=== PATIENT | male | born 1950 | race Caucasian/White ===

== ENCOUNTER 2020-02-13 09:24 | Outpatient (REF) | payer MEDICARE, SELFPAY ==
[2020-02-13 10:26] LABS: Hemoglobin 14.8 g/dl (14.0-18.0); Mean Corpuscular HGB Conc 33.6 g/dl (31.0-36.0); Mean Corpuscular Hemoglobin 31.6 pg (27.0-33.0); Mean Platelet Volume 9.5 fL (9.4-12.4); Platelet Count 306 X10*3/uL (160-400); Red Blood Count 4.68 X10*6/uL (4.60-5.80); Red Cell Distribution Width 12.1 % (11.0-16.0); White Blood Count 7.4 X10*3/uL (4.8-10.8)
[2020-02-13 10:51] LABS: Alanine Aminotransferase 23 U/L (0-40); Albumin Level 4.6 g/dL (3.5-5.0); Alkaline Phosphatase 75 U/L (39-117); Anion Gap 13 (12-20); Aspartate Amino Transferase 25 U/L (5-37); Bilirubin Direct 0.3 mg/dL (0.0-0.5); Bilirubin Total 0.6 mg/dL (0.0-1.0); Blood Urea Nitrogen 9 mg/dL (9-16); Calcium 9.3 mg/dL (8.4-10.2); Carbon Dioxide 30 mmol/L (22-29); Chloride 98 mmol/L (96-108); Cholesterol 187 mg/dL; Estimated Glomerular Filt Rate > 60; Glucose Random 118 mg/dL (60-115); HDL Cholesterol 77 mg/dL; LDL Cholesterol Calculated 97 mg/dl; Potassium 3.9 mmol/l (3.3-5.1); Sodium 137 mmol/L (135-145); Total Protein 7.2 g/dL (6.5-8.0); Triglycerides 65 mg/dL
== END 2020-02-13 09:25 | disposition home or self-care (01) ==
LOC: HO.10HDL 09:24
PROVIDERS: Visit Provider Internal Medicine
DX: I10 Essential (primary) hypertension (principal); J44.9 Chronic obstructive pulmonary disease, unspecified; K21.9 Gastro-esophageal reflux disease without esophagitis
CPT/HCPCS: 36415; 80048; 80061; 80076; 85027

== ENCOUNTER → 2020-05-28 13:21 | Outpatient (BNVA) | payer MEDICARE, SELFPAY | PROVIDERS: PCP Internal Medicine; Visit Provider Internal Medicine Pulmonary Disease | DX: J44.9 Chronic obstructive pulmonary disease, unspecified (principal); Z91.09 Other allergy status, other than to drugs and biological substances; K21.9 Gastro-esophageal reflux disease without esophagitis | CPT/HCPCS: 99212 ==

== ENCOUNTER 2020-07-03 13:49 | Outpatient (REF) | payer MEDICARE, SELFPAY | END 2020-07-03 13:50 | disposition home or self-care (01) | LOC: HO.LNP 13:49 | PROVIDERS: Visit Provider Hospitalist | DX: R51.9 Headache, unspecified (principal); Z20.822 Contact with and (suspected) exposure to COVID-19 | CPT/HCPCS: U0003; U0005 ==

== ENCOUNTER → 2020-09-06 08:58 | Outpatient (BNVA) | payer MEDICARE, SELFPAY | PROVIDERS: PCP Internal Medicine; Visit Provider Internal Medicine Pulmonary Disease | DX: J44.9 Chronic obstructive pulmonary disease, unspecified (principal); Z91.09 Other allergy status, other than to drugs and biological substances; Z79.899 Other long term (current) drug therapy | CPT/HCPCS: 99212 ==

== ENCOUNTER 2020-10-17 09:30 | Outpatient (REF) | payer MEDICARE, SELFPAY ==
[2020-10-17 10:37] LABS: Glucose Urine UA NEG (NEG); Leukocyte Esterase Urine NEG (NEG); Nitrite Urine NEG (NEG); PH 7.5 (5.0-8.0); Urine Blood NEG (NEG); Urine Ketones NEG (NEG); Urine Protein NEG (NEG-TRACE)
[2020-10-17 10:39] LABS: Appearance Urine CLEAR; Color Urine YELLOW
[2020-10-17 10:40] LABS: Hematocrit 40.3 % (42-52); Hemoglobin 14.1 g/dl (14.0-18.0); Mean Corpuscular Hemoglobin 31.3 pg (27.0-33.0); Mean Corpuscular Volume 89.6 fL (80-98); Mean Platelet Volume 9.5 fL (9.4-12.4); Platelet Count 289 X10*3/uL (160-400); Red Cell Distribution Width 12.3 % (11.0-16.0); White Blood Count 6.9 X10*3/uL (4.8-10.8)
[2020-10-17 10:58] LABS: Alanine Aminotransferase 22 U/L (0-40); Albumin Level 4.5 g/dL (3.5-5.0); Alkaline Phosphatase 72 U/L (39-117); Anion Gap 14 (12-20); Aspartate Amino Transferase 24 U/L (5-37); Bilirubin Direct 0.3 mg/dL (0.0-0.5); Bilirubin Total 0.5 mg/dL (0.0-1.0); Blood Urea Nitrogen 9 mg/dL (9-16); Calcium 9.3 mg/dL (8.4-10.2); Carbon Dioxide 25 mmol/L (22-29); Chloride 97 mmol/L (96-108); Cholesterol 183 mg/dL; Estimated Glomerular Filt Rate > 60; Glucose Random 107 mg/dL (60-115); HDL Cholesterol 74 mg/dL; LDL Cholesterol Calculated 88 mg/dl; Potassium 3.7 mmol/L (3.3-5.1); Sodium 132 mmol/L (135-145); Total Protein 7.1 g/dL (6.5-8.0); Triglycerides 105 mg/dL
[2020-10-17 11:22] LABS: Thyroid Stimulating Hormone 1.77 uIU/mL (0.32-4.0)
[2020-10-17 12:03] LABS: Erythrocyte Sedimentation Rate 5 MM/HR (0-15)
== END 2020-10-17 09:31 | disposition home or self-care (01) ==
LOC: HO.10HDL 09:30
PROVIDERS: Visit Provider Internal Medicine
DX: I10 Essential (primary) hypertension (principal)
CPT/HCPCS: 36415; 80048; 80061; 80076; 81003; 84443; 85027; 85652

== ENCOUNTER → 2020-12-20 07:55 | Outpatient (BNVA) | payer MEDICARE, SELFPAY | PROVIDERS: PCP Internal Medicine; Visit Provider Physician Assistant | DX: Z12.11 Encounter for screening for malignant neoplasm of colon (principal); K21.9 Gastro-esophageal reflux disease without esophagitis | CPT/HCPCS: 99202 ==

== ENCOUNTER → 2021-01-30 10:36 | Outpatient (BNVA) | payer MEDICARE, SELFPAY | PROVIDERS: PCP Internal Medicine; Visit Provider Internal Medicine Pulmonary Disease | DX: Z01.811 Encounter for preprocedural respiratory examination (principal); J44.9 Chronic obstructive pulmonary disease, unspecified; Z91.09 Other allergy status, other than to drugs and biological substances | CPT/HCPCS: 99212 ==

== ENCOUNTER 2021-02-01 11:28 | Emergency (ER) | payer MEDICARE, SELFPAY ==
--- NOTE | 2021-01-30 14:47 | HO.ANESPROP2 ---
HPI - Anesthesia Eval Consult details Narrative: 02/01/21 - New onset afib preop. Endos cx'd. Pt tx'd to ED. 70yo M for ?Upper Endoscopy and Colonoscopy Pulmo cleared @ low risk. Rec's preop neb. +ETOH PMFSH Active Problems Active Problems: All Active Problems (Updated 01/30/21 @ 10:55 by Tomas Mauricio MD) Encounter for preoperative pulmonary examination (Acute) Asthma-COPD overlap syndrome (Acute) Environmental allergies (Acute) Headache (Acute) Nonspecific syndrome suggestive of viral illness (Acute) Screening for colon cancer (Acute) Urinary anomaly (Acute) Post-traumatic osteoarthritis, unspecified hand (Acute) Chronic obstructive pulmonary disease, unspecified (Acute) GERD (gastroesophageal reflux disease) (Acute) Alcohol abuse, uncomplicated (Acute) Borderline hypercholesterolemia (Acute) Benign essential HTN (Acute) Past Medical History Medical History Alcohol abuse, uncomplicated Benign essential HTN Borderline hypercholesterolemia Chronic obstructive pulmonary disease, unspecified Environmental allergies GERD (gastroesophageal reflux disease) Post-traumatic osteoarthritis, unspecified hand Family History Family History Father No problems noted. Mother No problems noted. Sister Pancreatic cancer Surgical History Surgical History History of cataract surgery History of removal of cyst Hx of colonoscopy Social History Social History Housing: House Alcohol intake: current Alcohol intake frequency: 0-2 drinks per day Alcohol type: hard liquor Patient Tobacco Use Status: Former Tobacco user Substance Use Type: Marijuana service: No Current occupational status: retired Meds Allergies Allergy/AdvReac Type Severity Reaction Status Date / Time No Known Allergies Allergy Verified 01/30/21 10:41 [No Known Allergies*] Exam Exam Date and Time: January 30, 2021 9697 Assessment and Plan Assessment Anesthesia Assessment: Chart Reviewed
--- NOTE | ~2021-02-01 | XR_ITS ---
EXAMINATION: XR CHEST CLINICAL INFORMATION: Low suspicion for pulmonary edema COMPARISON: None TECHNIQUE: Frontal view of the chest was obtained. FINDINGS: No significant abnormality is noted involving the heart, lungs, mediastinum, bony thorax or soft tissues. XR/XR chest 1V IMPRESSION: Unremarkable chest examination.
[2021-02-01 10:13] VITALS: BMI 25.7
[2021-02-01 10:17] VITALS: BP 156/78; PULSE 97; RESP 18; TEMP 36.6; O2SAT 95
[2021-02-01] MEDS: Albuterol Sulfate (0.083%) 2.5 MG/3 ML VIAL.NEB INHALE (10:33)
[2021-02-01 10:34] VITALS: PULSE 114
--- NOTE | 2021-02-01 10:35 | PC.NURSE ---
pt recieving resp tx
--- NOTE | 2021-02-01 10:38 | ECG_ITS ---
Test Reason : pvc, ? changes Blood Pressure : / mmHG Vent. Rate : 104 BPM Atrial Rate : 000 BPM P-R Int : 000 ms QRS Dur : 098 ms QT Int : 364 ms P-R-T Axes : 000 044 060 degrees QTc Int : 478 ms Atrial fibrillation with rapid ventricular response Nonspecific ST abnormality Abnormal ECG When compared with ECG of 19-NOV-2018 08:35, Atrial fibrillation has replaced Sinus rhythm Referred By: Mayo Sethi Electronically Signed By:CYNDEE CHEEK MD
--- NOTE | 2021-02-01 10:45 | MHC.SHP ---
Pre-Procedural Eval Section A Date of Service: 02/01/21 The patient is an INPATIENT: No The History & Physical has been completed within 30 days and I have reviewed it.: No Section B Chief Complaint: Colon cancer screening, reflux disease Details of Present Illness: Colon cancer screening, GERD Relevant Family History (Specify if Yes): Yes Relevant Social History: None Present Medications: see Short Stay Collaborative assessment Medical History: Significant History (Alcohol abuse, uncomplicated Benign essential HTN Borderline hypercholesterolemia Chronic obstructive pulmonary disease, unspecified GERD (gastroesophageal reflux disease) Post-traumatic osteoarthritis, unspecified hand) History of Previous Operations: Relevant previous surgery/procedure and date(s) (History of cataract surgery History of removal of cyst Hx of colonoscopy) Allergies: Allergies Allergy/AdvReac Type Severity Reaction Status Date / Time No Known Allergies Allergy Verified 01/30/21 10:41 [No Known Allergies*] Plan Diagnosis/Plan: Change (Pt evaluated by anesthesia on arrival and noted to be in AF with rapid ventricular response.) Procedure was cancelled and patient transferred to the ER for further management.
[2021-02-01] MEDS: Lactated Ringers 1,000 ML 100 ML IVCONT (10:47)
--- NOTE | 2021-02-01 10:48 | PM.OP ---
Brief Operative Note Date of Service: 02/01/21 Pre-op diagnosis: Colon cancer screening, GERD Procedure: FLEXIBLE TRANSORAL UPPER GASTROINTESTINAL ENDOSCOPY AND COLONOSCOPY PROCEDURE NOTE UPPER ENDOSCOPY Consent: Indications for the procedure and potential complications of bleeding, perforation, reaction to medications and missed diagnosis were discussed with the patient and informed consent was obtained. Instrument: Olympus GIF H 190 mid size upper endoscope Monitoring: Vital signs and clinical assessment, continuous EKG monitoring, Pulse oximetry, Carbon Dioxide monitoring and blood pressure monitoring were done throughout the procedure. Procedure: The patient was placed in the left lateral decubitis position and pre-procedure medications were administered and a bite block was placed. The endoscope was inserted into the mouth and advanced under direct vision to the third part of duodenum. A careful inspection was made as the upper endoscope was withdrawn including a retroflexed examination of the proximal stomach; Findings and interventions are described below. Findings: Larynx: Esophagus: GE junction at []. No esophagitis or Arita's. Stomach: Mild gastric erythema. Biopsies were obtained. Grade 2 flap valve on retroflexed examination of the cardia. Duodenum: Normal bulb and descending duodenum Intervention: Biopsies as noted above COLONOSCOPY PROCEDURE NOTE Consent: Indications for the procedure and potential complications of bleeding, perforation, reaction to medications and missed diagnosis were discussed with the patient and informed consent was obtained. Instrument: Olympus PCF H 190 L variable stiffness pediatric colonoscope Monitoring: Vital signs and clinical assessment, intermittent blood pressure monitoring, continuous EKG monitoring, Pulse oximetry and Carbon Dioxide monitoring were done throughout the procedure. Colon withdrawl time was [] minutes. Procedure: The patient was placed in the left lateral decubitis position and pre-procedure medications were administered. After a digital rectal examination of the ano-rectum, the video colonoscope was inserted into the rectum and advanced through the colon to the cecum. The colonoscope was slowly withdrawn in a retrograde panoramic fashion and the colon mucosa was carefully examined including a retroflexed view of the rectum. Findings and interventions are described below. Procedure Difficulty: : [Without difficulty] [LLQ pressure applied to intubate the transverse colon/cecum] Findings: Terminal Ileum: Not evaluated Cecum: Normal Ascending Colon: Normal Transverse Colon: Normal Descending Colon: Normal Sigmoid Colon: Moderate diverticulosis Rectum: Normal Ano-rectum: Moderate internal hemorrhoids Colon preparation: [Excellent] [Good] [Fair] [poor] Impression and Post Procedure Diagnosis: Endoscopy Findings: LARYNX: [] ESOPHAGUS: [] STOMACH: [] DUODENUM: [] Colonoscopy Findings: [] polyps removed Moderate diverticulosis seen in the []colon Moderate hemorrhoids on retroflexed exam. Plan: Await pathology results Patient has an appointment on 03/18/21 in the [facility] with PHIL Lopez. Repeat Colonoscopy interval based on path results - in 3-5 years if polyps are adenomatous and 10 years if polyps are hyperplastic. Above findings were reviewed with the patient and [colon polyps] and [diverticulosis] handouts were given in the discharge area Surgeon: Yara Teran MD Was an [employer] used for this Procedure?: No
--- NOTE | 2021-02-01 10:48 | W.PM.OPN ---
Operative Note Operative Note Date of Service: 02/01/21
--- NOTE | 2021-02-01 10:57 | PC.NURSE ---
anesthesia at bedside pt in afib denies c/p denies sob
--- NOTE | 2021-02-01 10:59 | PC.NURSE ---
pt aware of plan of care pwd report to ed from anesthesia denies pain awaiting transfer to ed
[2021-02-01 11:06] VITALS: BP 102/66; PULSE 96; RESP 17; TEMP 36.6; O2SAT 94
--- NOTE | 2021-02-01 11:08 | PC.NURSE ---
pt denies sob pwd aware of plan of care
--- NOTE | 2021-02-01 11:14 | PC.NURSE ---
pt being transferred to ed report to mallory farris pt aware of plan of care
[2021-02-01 11:30] VITALS: BP 124/66; PULSE 93; RESP 17; TEMP 37; O2SAT 95; BMI 25.0
--- NOTE | 2021-02-01 11:38 | ECG_ITS ---
Test Reason : AFIB Blood Pressure : / mmHG Vent. Rate : 083 BPM Atrial Rate : 000 BPM P-R Int : 000 ms QRS Dur : 096 ms QT Int : 390 ms P-R-T Axes : 000 045 043 degrees QTc Int : 458 ms Atrial fibrillation Abnormal ECG No significant changes seen Referred By: Agnes Ramires Electronically Signed By:CYNDEE CHEEK MD
--- NOTE | 2021-02-01 11:42 | ED.ARRPALP ---
HPI - Arrhythmia/Palpitations General Chief Complaint: Arrhythmia/Palpitations Time Seen by Provider: 02/01/21 11:36 Source: patient Mode of arrival: wheelchair Limitations: no limitations History of Present Illness HPI narrative: Patient is coming to the emergency room by wheelchair from short surgery stay. Patient was scheduled to get an upper endoscopy and colonoscopy today. On his EKG this morning he had atrial fibrillation. On the monitor his heart rate ranged between 100 and 120. Patient has no history of atrial fibrillation, he is asymptomatic, denies chest pain, shortness of breath or palpitations. Patient is known to drink alcohol every day, last drink yesterday morning. Related Data Previous Rx's Medication Instructions Recorded fluticasone propionate 220 2 puff PO BID #36 g 02/07/ mcg/actuation HFA aerosol inhaler (Flovent HFA) lisinopril 20 1 tab PO DAILY #30 tab 07/12/20 mg-hydrochlorothiazide 25 mg tablet amlodipine 10 mg tablet 10 mg PO DAILY #90 tab 08/09/20 simvastatin 40 mg tablet 40 mg PO QPM #90 tab 09/05/20 fluticasone propionate 50 1 spray INTRANASAL DAILY #16 ml 09/06/20 mcg/actuation nasal spray,suspension omeprazole 20 mg capsule,delayed 20 mg PO DAILY #90 cap 09/09/20 release meloxicam 15 mg tablet 15 mg PO DAILY #30 tab 10/15/20 umeclidinium 62.5 mcg-vilanterol 1 ea PO DAILY #60 cap 11/26/20 25 mcg/actuation powdr for inhalation (Anoro Ellipta) bisacodyl 5 mg tablet,delayed 10 mg PO ONCE 1 Days #2 tab 12/20/20 release (Dulcolax (bisacodyl)) polyethylene glycol 3350 17 238 g PO ONCE 1 Days #238 g 12/20/20 gram/dose oral powder (Miralax) albuterol sulfate 90 mcg/actuation 2 puff PO Q4-6H PRN #8.5 ea 12/28/20 aerosol inhaler Allergies Allergy/AdvReac Type Severity Reaction Status Date / Time No Known Allergies Allergy Verified 01/30/21 10:41 [No Known Allergies*] Review of Systems Review of Systems: Constitutional : No Weight loss, No Fever, No Chills, No Night Sweats, No Fatigue, No Malaise ENT/Mouth : No Hearing loss, No Ear Pain, No Nasal Congestion, No Sinus Pain, No Hoarseness, No sore throat, No Rhinorrhea, No Swallowing Difficulty Eyes: No Eye Pain, No Swelling, No Redness, No Foreign Body, No Discharge, No Vision Changes Cardiovascular : No Chest Pain, No SOB, No Dyspnea on Exertion, No Orthopnea, No Edema, No Palpitations Respiratory : No Cough, No Sputum, No Wheezing, No Smoke Exposure, No Dyspnea Gastrointestinal : No Nausea, No Vomiting, No Diarrhea, No Constipation, No abdominal Pain, No Hematochezia, No Melena Genitourinary : no irregular bleeding, No Dysuria, No Urinary Frequency, No Hematuria, No Urinary Incontinence, No Urgency, No Flank Pain, No Urinary Flow Changes, No Hesitancy Musculoskeletal : No joint pain, No Myalgias, No Joint Swelling Skin : No Skin Lesions, No rash Neuro : No Weakness, No Numbness, No Paresthesias, No Loss of Consciousness, No Dizziness, No Headache Psych : No Anxiety/Panic, No Depression, No SI/HI/AH/VH, No Social Issues, Heme/Lymph: No Bruising, No Bleeding,No Lymphadenopathy Endocrine : No Polyuria, No Polydipsia, No Temperature Intolerance [facility] Past Medical History Medical History Alcohol abuse, uncomplicated Benign essential HTN Borderline hypercholesterolemia Chronic obstructive pulmonary disease, unspecified Environmental allergies GERD (gastroesophageal reflux disease) Post-traumatic osteoarthritis, unspecified hand Surgical History History of cataract surgery History of removal of cyst Hx of colonoscopy Family History Family History Father No problems noted. Mother No problems noted. Sister Pancreatic cancer Social History Social History Housing: House Alcohol intake: current Alcohol intake frequency: 0-2 drinks per day Alcohol type: hard liquor Patient Tobacco Use Status: Former Tobacco user Use of substances other than those prescribed or required for medical reasons: No Substance Use Type: Marijuana Have you been hit, kicked, punched, or otherwise hurt by someone within the past year? If so, by whom?: No Are you DNR?: No Advance Directives: No Advance Directives Information Provided: Yes Recently lost weight without trying: No Nutrition Risks: No Nutritional Risk Poor oral hygiene: No service: No Current occupational status: retired Physical Exam Vital Signs: Vital Signs: Last Vital Signs Temp 98.6 F 02/01/21 11:30 Pulse 93 02/01/21 11:30 Resp 17 02/01/21 11:30 BP 124/66 02/01/21 11:30 Pulse Ox 95 02/01/21 11:30 Body Mass Index 25.0 Const: Other: Appearance: Alert. Oriented X3. No acute distress. Eyes: Pupils equal, round and reactive to light. ENT: Pharynx normal. Neck: Normal inspection. Neck supple. No lymph nodes noted. No crepitus CVS: Irregularly irregular, rate control, heart rate 86. Pulses normal. Normal S1 and S2 Respiratory: No respiratory distress. Breath sounds normal. No Wheezing. No rales Abdomen: Soft and nontender. No rigidity. No distention. good BS x4 Skin: Skin warm and dry. Normal skin color. Normal skin turgor. Extremities: No lower extremity edema. No Lacerations. No Rash Neuro: Oriented X 3. No motor deficit. No sensory deficit. Moving all extermities. No slurred speech. Course Course Course Narrative: I discussed the patient with Dr. Miles, recommends to start Xarelto 20 mg daily. I initially spoke to the patient, states that he is willing to go on anticoagulation, but patient changed his mind, states he wants to talk to his primary care physician. Patient will be given a referral to Cardiology as well. I discussed thoroughly with the patient that he is at risk of a stroke. Patient understands the benefits versus risks of anticoagulation. As mentioned above, patient wants to wait. Patient states he can get an appointment tomorrow with his primary care physician MDM - Arrhythmia/Palpitations Lab Data Result diagrams: 02/01/21 11:47 02/01/21 11:47 Labs: Lab Results 02/01/21 02/01/21 02/01/21 Range/Units 11:46 11:46 11:47 WBC 7.3 (4.8-10.8) X10*3/uL RBC 4.51 L (4.60-5.80) X10*6/uL Hgb 14.3 (14.0-18.0) g/dl Hct 39.8 L (42-52) % MCV 88.2 (80-98) fL MCH 31.7 (27.0-33.0) pg MCHC 35.9 (31.0-36.0) g/dl RDW 12.7 (11.0-16.0) % Plt Count 291 (160-400) X10*3/uL MPV 8.9 L (9.4-12.4) fL Immature Gran % (Auto) 0.4 (0.0-0.4) % Neut % (Auto) 73.8 H (45-73) % Lymph % (Auto) 12.5 L (20-40) % Winkler % (Auto) 8.8 (2-11) % Eos % (Auto) 3.7 (0-4) % Baso % (Auto) 0.8 (0-2) % Lymph # (Auto) 0.9 L (1.2-4.9) X10*3/uL Winkler # (Auto) 0.6 (0.1-1.2) X10*3/uL Eos # (Auto) 0.3 (0.0-0.4) X10*3/uL Baso # (Auto) 0.1 (0.0-0.2) X10*3/uL Abs Immat Gran (auto) 0.03 (0.00-0.03) X10*3/uL Absolute Neuts (auto) 5.4 (2.0-8.3) X10*3/uL Absolute Nucleated RBC 0.000 (0.0-0.012) X10*3/uL Nucleated RBC % (auto) 0.0 (0.0-0.2) /100WBC Sodium (135-145) mmol/L Potassium (3.3-5.1) mmol/L Chloride (96-108) mmol/L Carbon Dioxide (22-29) mmol/L Anion Gap (12-20) BUN (9-16) mg/dL Creatinine (0.5-1.4) mg/dL Estim Creat Clear Calc Estimated GFR Random Glucose (60-115) mg/dL Calcium (8.4-10.2) mg/dL Magnesium (1.6-2.6) mg/dL Total Bilirubin (0.0-1.0) mg/dL Direct Bilirubin (0.0-0.5) mg/dL AST (5-37) U/L ALT (0-40) U/L Alkaline Phosphatase (39-117) U/L Troponin I High Sens 6.0 (<3.5-35.0) ng/L B-Natriuretic Peptide 140 H (<100) pg/mL Total Protein (6.5-8.0) g/dL Albumin (3.5-5.0) g/dL Ethyl Alcohol < 10 mg/dL 02/01/21 Range/Units 11:47 WBC (4.8-10.8) X10*3/uL RBC (4.60-5.80) X10*6/uL Hgb (14.0-18.0) g/dl Hct (42-52) % MCV (80-98) fL MCH (27.0-33.0) pg MCHC (31.0-36.0) g/dl RDW (11.0-16.0) % Plt Count (160-400) X10*3/uL MPV (9.4-12.4) fL Immature Gran % (Auto) (0.0-0.4) % Neut % (Auto) (45-73) % Lymph % (Auto) (20-40) % Winkler % (Auto) (2-11) % Eos % (Auto) (0-4) % Baso % (Auto) (0-2) % Lymph # (Auto) (1.2-4.9) X10*3/uL Winkler # (Auto) (0.1-1.2) X10*3/uL Eos # (Auto) (0.0-0.4) X10*3/uL Baso # (Auto) (0.0-0.2) X10*3/uL Abs Immat Gran (auto) (0.00-0.03) X10*3/uL Absolute Neuts (auto) (2.0-8.3) X10*3/uL Absolute Nucleated RBC (0.0-0.012) X10*3/uL Nucleated RBC % (auto) (0.0-0.2) /100WBC Sodium 130 L (135-145) mmol/L Potassium 3.5 (3.3-5.1) mmol/L Chloride 95 L (96-108) mmol/L Carbon Dioxide 24 (22-29) mmol/L Anion Gap 15 (12-20) BUN 7 L (9-16) mg/dL Creatinine 0.82 (0.5-1.4) mg/dL Estim Creat Clear Calc 98.7 Estimated GFR > 60 Random Glucose 114 (60-115) mg/dL Calcium 9.4 (8.4-10.2) mg/dL Magnesium 1.8 (1.6-2.6) mg/dL Total Bilirubin 0.7 (0.0-1.0) mg/dL Direct Bilirubin 0.3 (0.0-0.5) mg/dL AST 26 (5-37) U/L ALT 28 (0-40) U/L Alkaline Phosphatase 77 (39-117) U/L Troponin I High Sens (<3.5-35.0) ng/L B-Natriuretic Peptide (<100) pg/mL Total Protein 6.6 (6.5-8.0) g/dL Albumin 4.2 (3.5-5.0) g/dL Ethyl Alcohol mg/dL ECG Data Attestation: I personally reviewed and interpreted this ECG as follows: (Atrial fibrillation, heart rate 83, a segment depression or elevation, no T-wave inversion, QTC 458) Discharge Plan Discharge Clinical Impression: Atrial fibrillation, new onset Patient Disposition: Home, Self-Care Instructions: A-fib (Atrial Fibrillation) (ED) Additional Instructions: Our shipping assistant recommended that you start anticoagulation, Xarelto 20 mg daily. You decided to wait until you see your primary care physician. Atrial fibrillation puts you at risk of a stroke, which could cause permanent neurological deficits leading to poor quality of life. Please follow-up with your primary care physician tomorrow. If you have any worsening or new symptoms, please return to the emergency room or call 911 Prescriptions: No Action fluticasone propionate [Flovent HFA] 220 mcg/actuation HFA aerosol inhaler 2 puff PO BID Qty: 36 RF: 3 lisinopril-hydrochlorothiazide 20-25 mg tablet 1 tab PO DAILY Qty: 30 RF: 4 amlodipine 10 mg tablet 10 mg PO DAILY Qty: 90 RF: 1 simvastatin 40 mg tablet 40 mg PO QPM Qty: 90 RF: 1 omeprazole 20 mg capsule,delayed release(DR/EC) 20 mg PO DAILY Qty: 90 RF: 1 Anoro Ellipta 62.5-25 mcg/actuation blister with device 1 ea PO DAILY Qty: 60 RF: 3 albuterol sulfate 90 mcg/actuation HFA aerosol inhaler 2 puff PO Q4-6H PRN (Reason: for wheezing) Qty: 8.5 RF: 6 meloxicam 15 mg tablet 15 mg PO DAILY Qty: 30 RF: 0 fluticasone propionate 50 mcg/actuation spray,suspension 1 spray intranasal DAILY Qty: 16 RF: 1 polyethylene glycol 3350 [Miralax] 17 gram/dose powder 238 g PO ONCE 1 Days Qty: 238 RF: 0 bisacodyl [Dulcolax (bisacodyl)] 5 mg tablet,delayed release (DR/EC) 10 mg PO ONCE 1 Days Qty: 2 RF: 0
[2021-02-01 11:54] LABS: MANUAL DIFF FLAG NO
[2021-02-01 11:55] LABS: Basophils Absolute Auto 0.1 X10*3/uL (0.0-0.2); Basophils Percent Auto 0.8 % (0-2); Eosinophils Absolute Auto 0.3 X10*3/uL (0.0-0.4); Eosinophils Percent Auto 3.7 % (0-4); Hematocrit 39.8 % (42-52); Hemoglobin 14.3 g/dl (14.0-18.0); Imm Gran Abs Auto 0.03 X10*3/uL (0.00-0.03); Imm Gran Pct Auto 0.4 % (0.0-0.4); Lymphocytes Absolute Auto 0.9 X10*3/uL (1.2-4.9); Lymphocytes Percent Auto 12.5 % (20-40); Mean Corpuscular HGB Conc 35.9 g/dl (31.0-36.0); Mean Corpuscular Hemoglobin 31.7 pg (27.0-33.0); Mean Corpuscular Volume 88.2 fL (80-98); Mean Platelet Volume 8.9 fL (9.4-12.4); Monocytes Absolute Auto 0.6 X10*3/uL (0.1-1.2); Monocytes Percent Auto 8.8 % (2-11); Neutrophils Absolute Auto 5.4 X10*3/uL (2.0-8.3); Neutrophils Percent Auto 73.8 % (45-73); Platelet Count 291 X10*3/uL (160-400); Red Blood Count 4.51 X10*6/uL (4.60-5.80); Red Cell Distribution Width 12.7 % (11.0-16.0); White Blood Count 7.3 X10*3/uL (4.8-10.8)
[2021-02-01 12:09] LABS: Ethanol < 10 mg/dL
[2021-02-01 12:15] LABS: Alanine Aminotransferase 28 U/L (0-40); Albumin Level 4.2 g/dL (3.5-5.0); Alkaline Phosphatase 77 U/L (39-117); Anion Gap 15 (12-20); Aspartate Amino Transferase 26 U/L (5-37); Bilirubin Direct 0.3 mg/dL (0.0-0.5); Bilirubin Total 0.7 mg/dL (0.0-1.0); Blood Urea Nitrogen 7 mg/dL (9-16); Calcium 9.4 mg/dL (8.4-10.2); Carbon Dioxide 24 mmol/L (22-29); Chloride 95 mmol/L (96-108); Creatinine Clr Calc Pharmacy 98.7; Estimated Glomerular Filt Rate > 60; Glucose Random 114 mg/dL (60-115); Magnesium 1.8 mg/dL (1.6-2.6); Potassium 3.5 mmol/L (3.3-5.1); Sodium 130 mmol/L (135-145); Total Protein 6.6 g/dL (6.5-8.0)
[2021-02-01 12:16] LABS: B Type Natriuretic Peptide 140 pg/mL (<100)
--- NOTE | 2021-02-01 13:39 | PC.NURSE ---
PT EDUCATED ON RISKS OF DECLINING XARELTO UP TO AND INCLUDING . PT REFUSING TO TAKE AT THIS TIME. STATES THAT HE WANTS TO F/U WITH HIS PCP. HE REPORTS I DRINK A NATURAL MUSHROOM TEA THAT THINS MY BLOOD PT AWAKE, ALERT AND ORIENTED X 3. SKIN WARM AND DRY. RESP UNLABORED. DENIES N/V. NO C/O PAIN. DENIES CP/SOB/DIZZINESS. IV REMOVED. PT AWAITING DC PAPERWORK
== END 2021-02-01 13:43 | disposition home or self-care (01) ==
LOC: HO.ED 11:28
PROVIDERS: Emergency Provider Emergency Medicine; PCP Internal Medicine; Visit Provider Internal Medicine Gastroenterology
DX: I48.91 Unspecified atrial fibrillation (principal); I49.9 Cardiac arrhythmia, unspecified; R06.02 Shortness of breath; Z79.899 Other long term (current) drug therapy; Z87.891 Personal history of nicotine dependence
CPT/HCPCS: 36415; 71045; 80048; 80076; 82077; 83735; 83880; 84484; 85025; 93005; 94640; 96360; 99284

== ENCOUNTER → 2021-03-20 14:11 | Outpatient (BNVA) | payer MEDICARE, SELFPAY | PROVIDERS: PCP Internal Medicine; Referring Provider Hospitalist; Visit Provider Internal Medicine Cardiovascular Disease | DX: I48.11 Longstanding persistent atrial fibrillation (principal) | CPT/HCPCS: 93005; 99202 ==

== ENCOUNTER 2021-04-03 12:49 | Day surgery (SDC) | payer MEDICARE, SELFPAY ==
[2021-03-28 13:45] VITALS: BMI 26.4
--- NOTE | 2021-04-02 09:44 | HO.ANESPROP2 ---
Documented by User: Windy Soni NP 04/02/21 09:48 HPI - Anesthesia Eval Consult details Narrative: 71yo M for Cardioversion Eliqius for afib Pulmo cleared for colo and endo @ low risk. Rec's preop neb. +ETOH abuse PMFSH Active Problems Active Problems: All Active Problems (Updated 03/28/21 @ 13:33 by Doretha Wu RN) Asthma-COPD overlap syndrome (Acute) Environmental allergies (Acute) Headache (Acute) Nonspecific syndrome suggestive of viral illness (Acute) Screening for colon cancer (Acute) Urinary anomaly (Acute) Encounter for preoperative pulmonary examination (Acute) Atrial fibrillation (Acute) Post-traumatic osteoarthritis, unspecified hand (Acute) Chronic obstructive pulmonary disease, unspecified (Acute) GERD (gastroesophageal reflux disease) (Acute) Alcohol abuse, uncomplicated (Acute) Borderline hypercholesterolemia (Acute) Benign essential HTN (Acute) Past Medical History Medical History (Updated 03/28/21 @ 13:33 by Doretha Wu RN) Alcohol abuse, uncomplicated Atrial fibrillation Benign essential HTN Borderline hypercholesterolemia Chronic obstructive pulmonary disease, unspecified Environmental allergies GERD (gastroesophageal reflux disease) Post-traumatic osteoarthritis, unspecified hand Family History Family History Father No problems noted. Mother No problems noted. Sister Pancreatic cancer Surgical History Surgical History History of cataract surgery History of removal of cyst Hx of colonoscopy Social History Social History Housing: House Are you a primary career resource specialist to a significant other at home: No Do you presently have visiting nurse or other home services: No Alcohol intake: current Alcohol intake frequency: 0-2 drinks per day Alcohol type: hard liquor Patient Tobacco Use Status: Former Tobacco user Tobacco use type: Cigarette e-Cigarette/Vaping Use: Never Used Second Hand Smoke Exposure: No Use of substances other than those prescribed or required for medical reasons: Yes Substance Use Type: Marijuana Have you been hit, kicked, punched, or otherwise hurt by someone within the past year? If so, by whom?: No Are you DNR?: No Advance Directives: No Advance Directives Information Provided: No Advance Directives on File: No Recently lost weight without trying: No Eating poorly because of decreased appetite: No Nutrition Risks: No Nutritional Risk service: No Current occupational status: retired Cognitive needs: No Hearing needs: No Vision needs: Yes (Reading glasses) Meds Allergies Allergy/AdvReac Type Severity Reaction Status Date / Time No Known Allergies Allergy Verified 03/25/21 09:13 [No Known Allergies*] Home Medications Medication Instructions Recorded Confirmed Last Taken Type aspirin 81 mg tablet,delayed 81 mg PO DAILY 03/25/21 03/28/21 Unknown History release (Adult Low Dose Aspirin) Exam Exam Date and Time: April 02, [id number] Height,Weight and Vital Signs: Height 6 ft 3 in Weight 96.162 kg Narrative Narrative: EKG 03/2021 atrial fibrillation rapid ventricular response at 109 beats per with nonspecific ST T wave changes Assessment and Plan Assessment Anesthesia Assessment: Chart Reviewed Documented by User: Mayo Sethi MD 04/03/21 14:15 [facility] Past Medical History Medical History (Updated 03/28/21 @ 13:33 by Doretha Wu RN) Alcohol abuse, uncomplicated Atrial fibrillation Benign essential HTN Borderline hypercholesterolemia Chronic obstructive pulmonary disease, unspecified Environmental allergies GERD (gastroesophageal reflux disease) Post-traumatic osteoarthritis, unspecified hand Family History Family History Father No problems noted. Mother No problems noted. Sister Pancreatic cancer Family history of problems with anesthesia: No Surgical History Surgical History History of cataract surgery History of removal of cyst Hx of colonoscopy History of Problems with Anesthesia: Yes Social History Social History Housing: House Are you a primary career resource specialist to a significant other at home: No Do you presently have visiting nurse or other home services: No Alcohol intake: current Alcohol intake frequency: 0-2 drinks per day Alcohol type: hard liquor Patient Tobacco Use Status: Former Tobacco user Tobacco use type: Cigarette e-Cigarette/Vaping Use: Never Used Second Hand Smoke Exposure: No Use of substances other than those prescribed or required for medical reasons: Yes Substance Use Type: Marijuana Have you been hit, kicked, punched, or otherwise hurt by someone within the past year? If so, by whom?: No Are you DNR?: No Advance Directives: No Advance Directives Information Provided: No Advance Directives on File: No Recently lost weight without trying: No Eating poorly because of decreased appetite: No Nutrition Risks: No Nutritional Risk service: No Current occupational status: retired Cognitive needs: No Hearing needs: No Vision needs: Yes (Reading glasses) Meds Allergies Allergy/AdvReac Type Severity Reaction Status Date / Time No Known Allergies Allergy Verified 03/25/21 09:13 [No Known Allergies*] Home Medications Medication Instructions Recorded Confirmed Last Taken Type aspirin 81 mg tablet,delayed 81 mg PO DAILY 03/25/21 03/28/21 Unknown History release (Adult Low Dose Aspirin) Exam Airway Mallampati Class: III TM Dist: >3cm Neck ROM: Full Loose/Missing/Broken Teeth: Yes Heart: irreg irreg s1s2 Lungs: cta b/l Assessment and Plan Final Anesthetic Review Family History of Problems with Anesthesia: No History of Problems with Anesthesia: Yes NPO: Yes ASA Class: III Final Preanesthetic Review: No Changes in Pt Med Stat, Meds/Allgs Chart Reviewed, Consent Obtained/Reviewed and Anes Risks/Benef Reviewed Patient Risk: Intermediate Procedure Risk: Intermediate Assessment/Block/Sedation in : Assess/Block/Sedation- Anesthetic Plan Anesthetic Plan: GA, MAC: and Regional Block Disposition: Standard PACU
[2021-04-03 13:22] VITALS: BP 139/84; PULSE 77; RESP 16; TEMP 36.6; O2SAT 98
[2021-04-03] MEDS: Lactated Ringers 1,000 ML 50 ML IVCONT (13:32)
--- NOTE | 2021-04-03 14:27 | MHC.SHP ---
Pre-Procedural Eval Section A Date of Service: 04/03/21 Changes since office visit: Yes Patient answered all questions; No Cold of Flu in the past 2 weeks, No New Medical Problems and No Changes in Medication The History & Physical has been completed within 30 days and I have reviewed it.: Yes Section B Chief Complaint: afib Allergies: Allergies Allergy/AdvReac Type Severity Reaction Status Date / Time No Known Allergies Allergy Verified 03/25/21 09:13 [No Known Allergies*] Plan I have reviewed the history and physical and performed a pertinent physical examination on my patient. No changes have occurred unless specified.
[2021-04-03 14:45] VITALS: BP 151/84; PULSE 73; RESP 20; TEMP 36.6; O2SAT 98
--- NOTE | 2021-04-03 14:48 | HO.CARDIVERS ---
Cardioversion Procedure Note Cardioversion Date of Procedure: 04/03/2021 Ordering Provider: Myself Performing Provider: Myself Indication for Procedure: Persistent new onset atrial fibrillation Pre-Op Diagnosis: Same Post-Op Diagnosis: Same Performed with Transesophageal Echo: No History: See my consult note Consent: Verbal and Written consent was obtained from the patient before starting the procedure after confirming oral anticoagulation use The patient was made aware of the risk of synchronized cardioversion including benefits, alternatives and 2nd opinion. Procedure: After consent obtained, cardioversion pads were attached in anteroposterior configuration and the patient was sedated by the anesthesia team. Once adequate sedation achieved, patient was delivered 200 joules of biphasic synchronized energy x2. Complications: None Impression: Brief conversion to sinus rhythm after the 1st shock, reverted back to atrial fibrillation Recommendations: Plan: 1. Continue full oral anticoagulation and current rate control 2. Follow up in the clinic in 2 weeks time
[2021-04-03 15:00] VITALS: BP 118/72; PULSE 74; RESP 20; O2SAT 96
[2021-04-03 15:15] VITALS: BP 130/81; PULSE 79; RESP 20; O2SAT 95
[2021-04-03 15:30] VITALS: BP 132/74; PULSE 65; RESP 16; TEMP 36.6; O2SAT 95
== END 2021-04-03 15:48 | disposition home or self-care (01) ==
PROVIDERS: PCP Internal Medicine; Visit Provider Internal Medicine Cardiovascular Disease
PROC: 5A2204Z Restoration of Cardiac Rhythm, Single (ICD-10-PCS; principal; 2021-04-03 14:30)
DX: I48.11 Longstanding persistent atrial fibrillation (principal); J44.9 Chronic obstructive pulmonary disease, unspecified; I10 Essential (primary) hypertension; E78.00 Pure hypercholesterolemia, unspecified; F10.10 Alcohol abuse, uncomplicated; F12.90 Cannabis use, unspecified, uncomplicated; Z79.01 Long term (current) use of anticoagulants; Z79.51 Long term (current) use of inhaled steroids; Z79.899 Other long term (current) drug therapy; Z87.891 Personal history of nicotine dependence
CPT/HCPCS: 92960

== ENCOUNTER → 2021-04-22 11:13 | Outpatient (REF) | payer MEDICARE, SELFPAY ==
--- NOTE | 2021-04-22 11:16 | CA_ITS ---
Transthoracic Echocardiogram Patient (Last, First, Middle): Sebastian Knapp, Gender: Male Date of : 1950 Age: 71 Procedure Date: 04/22/2021 Procedure Type: Transthoracic Echocardiogram Location: OP Height: 190.5 cm Weight: 90.72 kg BSA: 2.19 m2 Heart Rate: bpm BP: 170 / 72 mmHg Warehouse And Receiving Supervisor: JUANIS Referring MD: Red Miles MD Steward/Stewardess Third Class: Red Miles MD Symptoms: I48.11 - Longstanding persistent atrial fibrillation Study Quality: Fair ECG Rhythm: Sinus Conclusions: - 1. Normal LV systolic function 2. Moderate left atrial enlargement 3. Mild mitral regurgitation 4. Normal RVSP 5. No pericardial effusion Findings Left Ventricle Normal left ventricular size, thickness, and systolic function. The visually estimated ejection fraction is between 60-65%. Diastolic function is indeterminate on the basis of available data. Right Ventricle Normal right ventricular cavity size and systolic function. Atria The left atrium is moderately dilated. There is no evidence of interatrial shunt. The right atrium is mildly dilated. Aortic Valve There is mild thickening of the aortic valve. There is no aortic valve stenosis. There is no aortic valve regurgitation. Mitral Valve There is mild anterior and posterior mitral leaflet thickening. There is mild mitral valve regurgitation. There is no mitral valve stenosis. Pulmonic Valve The pulmonic valve was not well visualized. Tricuspid Valve Likely normal tricuspid valve structure and function. There is mild tricuspid valve regurgitation. The right ventricular systolic pressure is normal. The right ventricular systolic pressure is 36 mmHg. There is no evidence of pulmonary hypertension. Great Vessels All visible segments of the aorta are normal in size. The pulmonary artery was not well visualized. Venous The inferior vena cava is normal in size and collapses greater than 50% with inspiration. Pericardium/Pleural There is no evidence of pericardial effusion. Prior Study Comparison No prior study available for comparison. Measurements 2D Linear Measurements IVSd: 1.10 0.6-0.9/0.6-1.0 cm LVIDd: 4.52 3.9-5.3/4.2-5.9 cm LVIDd Index: 2.06 2.4-3.2/2.2-3.1 cm/m2 LVIDs: 3.18 2.0-3.6 cm LVPWd: 1.02 0.7-1.1 cm Ao Root: 3.40 2.1-3.5 cm LA Diam: 4.10 2.7-3.8/3.0-4.0 cm LAIDs Index: 1.87 1.5-2.3 cm/m2 LV Mass: 208.43 67-162/88-224 g LV Mass Index: 95.17 43-95/49-115 g/m2 LVOT Diam: 2.20 3.0+(-)1.3 cm 2D Systolic Function EF 4C: 72.80 >55% EF 2C: 50.60 >55% EF BiP: 63.50 >55% Aortic Valve AoV Pk Tho: 1.40 AoV Mn Tho: 0.96 AoV VTI: 0.27 AoV Pk Grad: 8.00 Aov Mn Grad: 4.00 YANELI Cont.VTI: 2.44 LVOT LVOT Pk Tho: 0.87 LVOT Mn Hto: 0.60 LVOT VTI: 0.17 LVOT Pk Grad: 3.00 LVOT Mn Grad: 2.00 LVOT Diam: 2.20 LVOT Area: 3.80 Right Ventricle TAPSE (mm): 2.21 TVS' Tho: 15.80 Tricuspid Valve TR Pk Tho: 2.63 TR Pk Grad: 28.00 RA Press: 8.00 RVSP: 36.00 Great Vessels Aorta Ao Root-2D: 3.40 2.0-3.7 cm Ao Asc: 3.50 2.1-3.4 cm Ao Arch: 3.10 Updated in Other Vendor System with Status of Final Red Miles MD electronically signed on 04/22/2021 6:12:46 PM with status of Final
== END ==
LOC: HO.CARD 11:13
PROVIDERS: Visit Provider Internal Medicine Cardiovascular Disease
DX: I48.11 Longstanding persistent atrial fibrillation (principal)
CPT/HCPCS: 93306

== ENCOUNTER → 2021-05-01 11:13 | Outpatient (BNVA) | payer MEDICARE, SELFPAY | PROVIDERS: PCP Internal Medicine; Referring Provider Hospitalist; Visit Provider Internal Medicine Cardiovascular Disease | DX: I48.11 Longstanding persistent atrial fibrillation (principal); I10 Essential (primary) hypertension; Z79.82 Long term (current) use of aspirin | CPT/HCPCS: 93005; 99212 ==

== ENCOUNTER → 2021-05-09 10:44 | Outpatient (REF) | payer MEDICARE, SELFPAY ==
--- NOTE | 2021-05-09 10:50 | HM_ITS ---
Total monitoring time 3 days and 19 hours. Underlying rhythm is atrial fibrillation. Minimum heart rate 49/Min. Maximum 163/Min. Average 72/Min. Only 1.56% of the time, rate >100/min. No AV blocks or pauses. Frequent PVCs; 2 morphologies and 848 couplets; overall burden 3.7%; 27 runs; longest 3 beats. Cannot exclude aberrant conduction. No patient events. MTDD
== END ==
LOC: HO.CARD 10:44
PROVIDERS: PCP Hospitalist; Visit Provider Internal Medicine Cardiovascular Disease
DX: I48.11 Longstanding persistent atrial fibrillation (principal)
CPT/HCPCS: 93242

== ENCOUNTER → 2021-06-26 12:18 | Outpatient (BNVA) | payer MEDICARE, SELFPAY | PROVIDERS: PCP Hospitalist; Referring Provider Internal Medicine; Visit Provider Physician Assistant | DX: Z12.11 Encounter for screening for malignant neoplasm of colon (principal) | CPT/HCPCS: 99212 ==

== ENCOUNTER → 2021-07-09 08:34 | Outpatient (BNVA) | payer MEDICARE, SELFPAY | PROVIDERS: PCP Hospitalist; Referring Provider Hospitalist; Visit Provider Internal Medicine Cardiovascular Disease | DX: Z01.810 Encounter for preprocedural cardiovascular examination (principal); I48.11 Longstanding persistent atrial fibrillation | CPT/HCPCS: 99212 ==

== ENCOUNTER → 2021-07-25 09:49 | Outpatient (BNVA) | payer MEDICARE, SELFPAY | PROVIDERS: PCP Hospitalist; Visit Provider Internal Medicine Pulmonary Disease | DX: Z01.811 Encounter for preprocedural respiratory examination (principal); J44.9 Chronic obstructive pulmonary disease, unspecified; Z91.09 Other allergy status, other than to drugs and biological substances | CPT/HCPCS: 99212 ==

== ENCOUNTER → 2021-07-31 10:10 | Outpatient (BNVA) | payer MEDICARE, SELFPAY | PROVIDERS: PCP Hospitalist; Visit Provider Physician Assistant | DX: K21.9 Gastro-esophageal reflux disease without esophagitis (principal); I48.91 Unspecified atrial fibrillation; J30.1 Allergic rhinitis due to pollen; Z79.01 Long term (current) use of anticoagulants; I10 Essential (primary) hypertension; F10.10 Alcohol abuse, uncomplicated; Z87.891 Personal history of nicotine dependence; Z79.899 Other long term (current) drug therapy | CPT/HCPCS: Q3014 ==

== ENCOUNTER 2021-09-10 09:19 | Outpatient (REF) | payer MEDICARE, SELFPAY ==
--- NOTE | ~2021-09-10 | CT_ITS ---
EXAMINATION: CT CHEST WITHOUT CONTRAST CLINICAL INFORMATION: Abnormal lung findings. COMPARISON: None TECHNIQUE: Multidetector volumetric CT imaging of the chest was done. Axial MIP volume rendering provided. Sagittal and coronal reformatted images were obtained. This CT examination was performed using dose optimization techniques as appropriate, variously including the following: *Automated exposure control *Adjustment of mA and/or kV according to patient size (this includes techniques or standardized protocols for targeted exams where dose is matched to indication/reason for exam; i.e. extremities or head) *Use of iterative reconstruction technique DLP: 196 mGy-cm FINDINGS: COMMUNITY LIVING COACH: Unremarkable. LUNGS: There is centrilobular emphysema without acute pneumonic process. There is a nodule likely focal bronchial wall thickening axial image 174/5, 5 mm right minor fissure nodule or thickening axial image 292/5, 8mm subpleural nodule right lower lobe axial image 318/5 and 2 mm subpleural nodule left upper lobe axial image 293/5. MEDIASTINUM: The thyroid lobes are symmetrical and normal. The central trachea and the bronchi widely patent. Heart size and the great vessels are normal caliber. There are small shotty lymph nodes in the mediastinum. Central trachea and the bronchi widely patent. There is trace coronary artery calcifications seen. PLEURA: There is no pleural thickening, effusion or pneumothorax. AXILLA: No abnormal lymphadenopathy seen. There is a lateral chest wall intramuscular lipoma measuring 3.9 cm in AP and 6.0 cm craniocaudad length. UPPER ABDOMEN: Visualized liver, spleen, pancreas and bilateral adrenal glands are unremarkable. There is a 3.5 x 3.6 cm partially exophytic cyst midpole right kidney. OSSEOUS STRUCTURES: There is mild ventral spondylosis mid and lower dorsal spine. No lytic or sclerotic process seen CT/CT chest wo con IMPRESSION: Centrilobular emphysema without acute process. Few scattered nodules as described above. Some of these nodules are fissural lymph nodes or subpleural lymph nodes. Mild thickening along the right major fissure likely intrafissural lymph node. Follow-up in one year or more than one year can be performed depending on patient risk factors. Fleischner guidelines were followed.
== END 2021-09-10 09:20 | disposition home or self-care (01) ==
LOC: HO.CT 09:19
PROVIDERS: PCP Hospitalist; Visit Provider Internal Medicine Pulmonary Disease
DX: R91.8 Other nonspecific abnormal finding of lung field (principal)
CPT/HCPCS: 71250

== ENCOUNTER 2021-09-13 08:18 | Outpatient (REF) | payer MEDICARE, SELFPAY ==
[2021-09-14 21:06] LABS: Lyme Abs Screen <0.90 index
== END 2021-09-13 08:19 | disposition home or self-care (01) ==
LOC: HO.WFDLDS 08:18
PROVIDERS: Visit Provider Hospitalist
DX: T14.8XXA Other injury of unspecified body region, initial encounter (principal); W57.XXXA Bitten or stung by nonvenomous insect and other nonvenomous arthropods, initial encounter
CPT/HCPCS: 36415; 86617; 86618

== ENCOUNTER → 2022-01-06 09:34 | Outpatient (BNVA) | payer MEDICARE, SELFPAY | PROVIDERS: PCP Hospitalist; Visit Provider Internal Medicine Pulmonary Disease | DX: J44.9 Chronic obstructive pulmonary disease, unspecified (principal); R91.8 Other nonspecific abnormal finding of lung field; Z91.09 Other allergy status, other than to drugs and biological substances | CPT/HCPCS: 99212 ==

== ENCOUNTER 2022-02-11 08:47 | Outpatient (REF) | payer MEDICARE, SELFPAY ==
[2022-02-11 11:44] LABS: Hematocrit 43.2 % (42.0-52.0); Hemoglobin 15.2 g/dl (14.0-18.0); Mean Corpuscular HGB Conc 35.2 g/dl (31.0-36.0); Mean Corpuscular Hemoglobin 31.4 pg (27.0-33.0); Mean Corpuscular Volume 89.3 fL (80.0-98.0); Mean Platelet Volume 9.9 fL (9.4-12.4); Platelet Count 316 X10*3/uL (160-400); Red Blood Count 4.84 X10*6/uL (4.60-5.80); Red Cell Distribution Width 12.5 % (11.0-16.0); White Blood Count 5.4 X10*3/uL (4.8-10.8)
[2022-02-11 11:50] LABS: Alanine Aminotransferase 19 U/L (0-40); Albumin Level 4.8 g/dL (3.5-5.0); Alkaline Phosphatase 86 U/L (39-117); Anion Gap 15 (12-20); Aspartate Amino Transferase 23 U/L (5-37); Bilirubin Total 0.8 mg/dL (0.0-1.0); Blood Urea Nitrogen 8 mg/dL (9-16); Calcium 9.9 mg/dL (8.4-10.2); Carbon Dioxide 28 mmol/L (22-29); Chloride 93 mmol/L (96-108); Cholesterol 161 mg/dL; Estimated Glomerular Filt Rate > 60; Glucose Fasting 139 mg/dL (60-99); HDL Cholesterol 65 mg/dL; LDL Cholesterol Calculated 82 mg/dl; Potassium 3.8 mmol/L (3.3-5.1); Sodium 132 mmol/L (135-145); Total Protein 7.5 g/dL (6.5-8.0); Triglycerides 72 mg/dL
[2022-02-11 11:59] LABS: TSH reflex Free T4 1.63 uIU/mL (0.32-4.0)
[2022-02-11 12:07] LABS: B Type Natriuretic Peptide 106 pg/mL (<100)
[2022-02-11 12:47] LABS: Folate 15.5 ng/mL (> or = 4.0); Vitamin B12 244 pg/mL (200-900)
[2022-02-16 15:47] LABS: Vitamin D 25-OH, D2 <4 ng/mL; Vitamin D 25-OH, D3 24 ng/mL; Vitamin D 25-OH, Total 24 ng/mL (30-100)
== END 2022-02-11 08:48 | disposition home or self-care (01) ==
LOC: HO.WFDLDS 08:47
PROVIDERS: Visit Provider Hospitalist
DX: Z00.00 Encounter for general adult medical examination without abnormal findings (principal); E55.9 Vitamin D deficiency, unspecified; I48.11 Longstanding persistent atrial fibrillation; D64.9 Anemia, unspecified
CPT/HCPCS: 36415; 80053; 80061; 82306; 82607; 82746; 83880; 84443; 85027

== ENCOUNTER → 2022-02-21 08:47 | Outpatient (BNVA) | payer MEDICARE, SELFPAY | PROVIDERS: PCP Hospitalist; Visit Provider Internal Medicine Pulmonary Disease | DX: Z01.811 Encounter for preprocedural respiratory examination (principal); J44.9 Chronic obstructive pulmonary disease, unspecified; R91.8 Other nonspecific abnormal finding of lung field | CPT/HCPCS: 99212 ==

== ENCOUNTER → 2022-03-19 08:30 | Outpatient (BNVA) | payer MEDICARE, SELFPAY | PROVIDERS: PCP Hospitalist; Referring Provider Hospitalist; Visit Provider Internal Medicine Cardiovascular Disease | DX: I48.11 Longstanding persistent atrial fibrillation (principal); I10 Essential (primary) hypertension | CPT/HCPCS: 99212 ==

== ENCOUNTER 2022-03-24 11:49 | Day surgery (SDC) | payer MEDICARE, SELFPAY ==
[2022-03-18 15:38] VITALS: BMI 25.3
--- NOTE | 2022-03-21 10:26 | HO.ANESPROP2 ---
Documented by User: Windy Soni NP 03/21/22 10:31 HPI - Anesthesia Eval Consult details Narrative: 72yo M for Upper Endoscopy and Colonoscopy Eliquis for afib Optimized per cardio and pulmo PMFSH Active Problems Active Problems: All Active Problems (Updated 03/18/22 @ 15:25 by Manuela Fernandez RN) Asthma-COPD overlap syndrome (Acute) Environmental allergies (Acute) Headache (Acute) Nonspecific syndrome suggestive of viral illness (Acute) Screening for colon cancer (Acute) Urinary anomaly (Acute) Encounter for preoperative pulmonary examination (Acute) Atrial fibrillation (Acute) Pulmonary nodules (Acute) Tick bite (Acute) Normal physical exam (Acute) Borderline anemia (Acute) Vitamin D deficiency (Acute) Elevated blood sugar (Acute) Preop pulmonary/respiratory exam (Acute) Post-traumatic osteoarthritis, unspecified hand (Acute) Chronic obstructive pulmonary disease, unspecified (Acute) GERD (gastroesophageal reflux disease) (Acute) Alcohol abuse, uncomplicated (Acute) Borderline hypercholesterolemia (Acute) Benign essential HTN (Acute) Past Medical History Medical History Alcohol abuse, uncomplicated Atrial fibrillation Benign essential HTN Borderline hypercholesterolemia Chronic obstructive pulmonary disease, unspecified Environmental allergies GERD (gastroesophageal reflux disease) History of cardioversion Post-traumatic osteoarthritis, unspecified hand Family History Family History Father No problems noted. Mother No problems noted. Sister Pancreatic cancer Family history of problems with anesthesia: No Surgical History Surgical History History of cataract surgery History of removal of cyst Hx of colonoscopy History of Problems with Anesthesia: Yes Social History Social History Housing: House Are you a primary field care coordinator to a significant other at home: No Do you presently have visiting nurse or other home services: No Alcohol intake: current Alcohol intake frequency: 0-2 drinks per day Alcohol type: hard liquor Patient Tobacco Use Status: Former Tobacco user Quit Date: 2016 Tobacco use type: Cigarette e-Cigarette/Vaping Use: Never Used Second Hand Smoke Exposure: No Use of substances other than those prescribed or required for medical reasons: Yes Substance Use Type: Marijuana Substance Use Frequency: Daily Are you DNR?: No Advance Directives: No Advance Directives Information Provided: Yes (brochure mailed) Advance Directives on File: No Recently lost weight without trying: No Eating poorly because of decreased appetite: No Nutrition Risks: No Nutritional Risk Poor oral hygiene: No (broken teeth) service: No Current occupational status: retired Cognitive needs: No Hearing needs: No Vision needs: Yes (Reading glasses) Meds Allergies Allergy/AdvReac Type Severity Reaction Status Date / Time pollen extracts Allergy Mild Unknown Verified 02/21/22 08:50 Home Medications Medication Instructions Recorded Confirmed Last Taken Type diltiazem HCl 300 mg 300 mg PO QPM 03/24/22 03/24/22 Unknown History capsule,extended release 24 hr lisinopril 10 mg tablet 10 mg PO QPM for blood pressure 03/24/22 03/23/22 History omeprazole 20 mg capsule,delayed 20 mg PO BID 03/24/22 03/24/22 03/24/22 History release Exam Exam Date and Time: March 21, 2022 1026 Height,Weight and Vital Signs: Height 6 ft 3 in Weight 92.079 kg Narrative Narrative: ECHO 04/2021 Conclusions: - 1. Normal LV systolic function ? 2. Moderate left atrial enlargement? 3. Mild mitral regurgitation ? 4. Normal RVSP ? 5. No pericardial effusion ? Holter 04/2021 Total monitoring time 3 days and 19 hours.? Underlying rhythm is atrial fibrillation.? Minimum heart rate 49/Min.? Maximum 163/Min.? Average 72/Min. Only 1.56% of the time, rate >100/min.? No AV blocks or pauses.? Frequent PVCs; 2 morphologies and 848 couplets; overall burden 3.7%; 27 runs; longest 3 beats.? Cannot exclude aberrant conduction.? No patient events. EKG 04/2021 atrial fibrillation at 99 beats per minute with QS pattern in lead V1 and V2.? Nonspecific ST changes noted. Assessment and Plan Assessment Anesthesia Assessment: Chart Reviewed Final Anesthetic Review Family History of Problems with Anesthesia: No History of Problems with Anesthesia: Yes Documented by User: Miladis Ang MD 03/24/22 13:37 [facility] Past Medical History Medical History Alcohol abuse, uncomplicated Atrial fibrillation Benign essential HTN Borderline hypercholesterolemia Chronic obstructive pulmonary disease, unspecified Environmental allergies GERD (gastroesophageal reflux disease) History of cardioversion Post-traumatic osteoarthritis, unspecified hand Functional capacity: independent ambulation Family History Family History Father No problems noted. Mother No problems noted. Sister Pancreatic cancer Surgical History Surgical History History of cataract surgery History of removal of cyst Hx of colonoscopy Social History Social History Housing: House Are you a primary field care coordinator to a significant other at home: No Do you presently have visiting nurse or other home services: No Alcohol intake: current Alcohol intake frequency: 0-2 drinks per day Alcohol type: hard liquor Patient Tobacco Use Status: Former Tobacco user Quit Date: 2016 Tobacco use type: Cigarette e-Cigarette/Vaping Use: Never Used Second Hand Smoke Exposure: No Use of substances other than those prescribed or required for medical reasons: Yes Substance Use Type: Marijuana Substance Use Frequency: Daily Are you DNR?: No Advance Directives: No Advance Directives Information Provided: Yes (brochure mailed) Advance Directives on File: No Recently lost weight without trying: No Eating poorly because of decreased appetite: No Nutrition Risks: No Nutritional Risk Poor oral hygiene: No (broken teeth) service: No Current occupational status: retired Cognitive needs: No Hearing needs: No Vision needs: Yes (Reading glasses) Meds Allergies Allergy/AdvReac Type Severity Reaction Status Date / Time pollen extracts Allergy Mild Unknown Verified 02/21/22 08:50 Home Medications Medication Instructions Recorded Confirmed Last Taken Type diltiazem HCl 300 mg 300 mg PO QPM 03/24/22 03/24/22 Unknown History capsule,extended release 24 hr lisinopril 10 mg tablet 10 mg PO QPM for blood pressure 03/24/22 03/23/22 History omeprazole 20 mg capsule,delayed 20 mg PO BID 03/24/22 03/24/22 03/24/22 History release Exam Airway Mallampati Class: III TM Dist: >3cm Neck ROM: Full Heart: irreg. Lungs: CTA Assessment and Plan Final Anesthetic Review NPO: Yes ASA Class: III Final Preanesthetic Review: No Changes in Pt Med Stat, Meds/Allgs Chart Reviewed, Consent Obtained/Reviewed and Anes Risks/Benef Reviewed Patient Risk: Low Procedure Risk: Low Anesthetic Plan Anesthetic Plan: MAC: Disposition: Standard PACU
[2022-03-24 12:00] VITALS: BP 125/75; PULSE 93; RESP 18; TEMP 36.8; O2SAT 98
[2022-03-24 12:19] VITALS: BMI 25.0
--- NOTE | 2022-03-24 12:21 | MHC.SHP ---
Pre-Procedural Eval Section A Date of Service: 03/24/22 The patient is an INPATIENT: No The History & Physical has been completed within 30 days and I have reviewed it.: No Section B Chief Complaint: screening,reflux Relevant Family History (Specify if Yes): No Relevant Social History: Tobacco Use (former smoker) Present Medications: see Short Stay Collaborative assessment Medical History: Significant History (Alcohol abuse, uncomplicated Atrial fibrillation Benign essential HTN Borderline hypercholesterolemia Chronic obstructive pulmonary disease, unspecified Environmental allergies GERD (gastroesophageal reflux disease) Post-traumatic osteoarthritis, unspecified hand) History of Previous Operations: Relevant previous surgery/procedure and date(s) (History of cataract surgery History of removal of cyst Hx of colonoscopy) Allergies: Allergies Allergy/AdvReac Type Severity Reaction Status Date / Time pollen extracts Allergy Mild Unknown Verified 02/21/22 08:50 Review of Systems Sugical H&P ROS: Negative: Constitution, Cardiovascular and Respiratory and Yes, Specify: Gastrointestinal (GERD) Exam Surgical H&P Exam: Normal: Heart, Normal: Lungs, Normal: Extremities and Normal: Abdomen Plan Diagnosis/Plan: Unchanged I have reviewed the history and physical and performed a pertinent physical examination on my patient. No changes have occurred unless specified.
[2022-03-24] MEDS: Lactated Ringers 1,000 ML 100 ML IVCONT (12:32)
[2022-03-24 13:24] LABS: Anion Gap 15 (12-20); Carbon Dioxide 26 mmol/L (22-29); Chloride 101 mmol/L (96-108); Potassium 3.4 mmol/L (3.3-5.1); Sodium 139 mmol/L (135-145)
--- NOTE | 2022-03-24 13:54 | PM.OP ---
Brief Operative Note Date of Service: 03/24/22 Pre-op diagnosis: Colon cancer screening, GERD - screening for Barretts Post-op diagnosis: other ( GERD, GASTRITIS, DUODENAL NODULE) Procedure: UPPER GI ENDOSCOPY WITH BIOPSIES. COLONOSCOPY TO CECUM WITH SNARE POLYPECTOMY Surgeon: Yara Teran MD Anesthesia: MAC Was an Real Estate Clerk used for this Procedure?: Yes Real Estate Clerk: Nikko Bansal Estimated blood loss (mL): 0 Pathology: other (A) BX Gastric Antrum (R/O H.Pylori) B) BX Duodenal Bulb Nodule C) BX Gastric Body D) Polyp Transverse Colon) Condition: stable Disposition: PACU
--- NOTE | 2022-03-24 13:54 | W.PM.OPN ---
Operative Note Operative Note Date of Service: 03/24/22 Narrative: Pre-op diagnosis: Colon cancer screening,? GERD -? screening for Barretts Post-op diagnosis:?other ( GERD, GASTRITIS, DUODENAL NODULE) Surgeon: Yara Teran MD Anesthesia:?MAC FLEXIBLE TRANSORAL UPPER GASTROINTESTINAL ENDOSCOPY WITH BIOPSIES AND COLONOSCOPY TILL CECUM WITH SNARE POLYPECTOMY UPPER ENDOSCOPY Consent: Indications for the procedure and potential complications of bleeding, perforation, reaction to medications and missed diagnosis were discussed with the patient and informed consent was obtained. Instrument: Olympus GIF H 190 mid size upper endoscope Monitoring: Vital signs and clinical assessment, continuous EKG monitoring, Pulse oximetry, Carbon Dioxide monitoring and blood pressure monitoring were done throughout the procedure. Procedure: The patient was placed in the left lateral decubitis position and pre-procedure medications were administered and a bite block was placed. The endoscope was inserted into the mouth and advanced under direct vision to the third part of duodenum. A careful inspection was made as the upper endoscope was withdrawn including a retroflexed examination of the proximal stomach; Findings and interventions are described below. Findings: Larynx: Normal Esophagus: GE junction at 40 cms. No esophagitis or Arita's. Stomach: Moderate diffuse gastric erythema with nodular appearing gastric mucosa in the body of the stomach.. Biopsies were obtained from the body and antrum. Grade 2 flap valve on retroflexed examination of the cardia. Duodenum: A 1.5 to 2 cms yellowish benign appearing nodule in the apex of the bulb - biopsied. Normal descending duodenum Intervention: Biopsies as noted above COLONOSCOPY PROCEDURE NOTE Consent: Indications for the procedure and potential complications of bleeding, perforation, reaction to medications and missed diagnosis were discussed with the patient and informed consent was obtained. Instrument: Olympus PCF H 190 L variable stiffness pediatric colonoscope Monitoring: Vital signs and clinical assessment, intermittent blood pressure monitoring, continuous EKG monitoring, Pulse oximetry and Carbon Dioxide monitoring were done throughout the procedure. Colon withdrawl time was [] minutes. Procedure: The patient was placed in the left lateral decubitis position and pre-procedure medications were administered. After a digital rectal examination of the ano-rectum, the video colonoscope was inserted into the rectum and advanced through the colon to the cecum. The colonoscope was slowly withdrawn in a retrograde panoramic fashion and the colon mucosa was carefully examined including a retroflexed view of the rectum. Findings and interventions are described below. Procedure Difficulty: : Without difficulty Findings: Terminal Ileum: Not evaluated Cecum: Normal Ascending Colon: Normal Transverse Colon: A 5-6 mm sessile polyp removed with a cold snare Descending Colon: Normal Sigmoid Colon: Moderate diverticulosis Rectum: Normal Ano-rectum: Moderate internal hemorrhoids Colon preparation: Excellent Impression and Post Procedure Diagnosis: Endoscopy Findings: STOMACH: Moderate diffuse gastric erythema with nodular appearing gastric mucosa in the body of the stomach.. Biopsies were obtained from the body and antrum. Grade 2 flap valve on retroflexed examination of the cardia. DUODENUM: A 1.5 to 2 cms yellowish benign appearing nodule in the apex of the bulb (likely submucosal lipoma) - biopsied. Colonoscopy Findings: One small polyp removed Moderate diverticulosis seen in the sigmoid colon Moderate hemorrhoids on retroflexed exam. Plan: Await pathology results Patient has an appointment on 04/07/22 in the GI Clinic with PHIL Lopez . Repeat Colonoscopy interval based on path results - in 3-5 years if polyps are adenomatous and 10 years if polyps are hyperplastic. GERD, colon polyps and diverticulosis handouts were given in the discharge area
[2022-03-24 14:54] VITALS: BP 138/78; PULSE 78; RESP 16; TEMP 36.5; O2SAT 97
--- NOTE | 2022-03-24 14:58 | HO.POSTANES ---
Post Anesthesia Evaluation Post Anesthesia Evaluation Vital Signs: Vital Signs Temp Pulse Resp BP Pulse Ox O2 Del Method 03/24/22 12:00 98.2 F 93 18 125/75 98 Room Air Anesthesia: Monitored Mental Status: Awake Pain Control: Satisfactory Nausea/Vomiting: None Hydration: Adequate Anesthesia-Related Issues: No Anes. Related Issues
[2022-03-24 15:09] VITALS: BP 133/88; PULSE 81; RESP 18; TEMP 36.5; O2SAT 97
== END 2022-03-24 15:39 | disposition home or self-care (01) ==
PROVIDERS: Nurse Practitioner; PCP Hospitalist; Visit Provider Internal Medicine Gastroenterology
PROC: (CPT 45385; principal; 2022-03-24 13:00)
DX: Z12.11 Encounter for screening for malignant neoplasm of colon (principal); D12.3 Benign neoplasm of transverse colon; K57.30 Diverticulosis of large intestine without perforation or abscess without bleeding; K64.8 Other hemorrhoids; K21.9 Gastro-esophageal reflux disease without esophagitis; K29.60 Other gastritis without bleeding; D13.2 Benign neoplasm of duodenum; I48.91 Unspecified atrial fibrillation; I10 Essential (primary) hypertension; J44.9 Chronic obstructive pulmonary disease, unspecified; M19.149 Post-traumatic osteoarthritis, unspecified hand; T14.90XS Injury, unspecified, sequela; F10.10 Alcohol abuse, uncomplicated; Z79.01 Long term (current) use of anticoagulants; Z79.899 Other long term (current) drug therapy; Z79.51 Long term (current) use of inhaled steroids
CPT/HCPCS: 45385; 43239; 36415; 80051; 88305; 88342

== ENCOUNTER → 2022-04-07 07:53 | Outpatient (BNVA) | payer MEDICARE, SELFPAY | PROVIDERS: PCP Hospitalist; Referring Provider Hospitalist; Visit Provider Physician Assistant | DX: D36.9 Benign neoplasm, unspecified site (principal); K57.30 Diverticulosis of large intestine without perforation or abscess without bleeding; I48.11 Longstanding persistent atrial fibrillation; F10.10 Alcohol abuse, uncomplicated | CPT/HCPCS: 99212 ==

== ENCOUNTER 2023-01-13 14:49 | Outpatient (AMB) | payer MEDICARE, SELFPAY ==
--- NOTE | 2023-01-13 14:50 | MHC.OFFVIS ---
Intake Vital Signs 01/13/23 14:51 Height 6 ft 3 in Weight 200 lb 9.93 oz BMI 25.1 BP 119/67 Blood Pressure Location Rt brachial Position Sitting Pulse 99 Pulse Source Doppler Pulse Oximetry (%) 96 Oxygen Delivery Method Room Air Intake Visit Reasons: Shortness of breath Allergies pollen extracts Allergy (Mild, Verified 01/13/23 14:53) Unknown HPI Shortness of breath HPI Details 72-year-old gentleman, former greater than 50 pack-year smoker, quit 05/2018, followed for moderate asthma/COPD overlap syndrome and environmental allergies.? His Anoro has been changed to Stiolto secondary to cost issues. He continues on Stiolto, Flovent, duo nebs, and albuterol MDI with reasonable prior control, until approximately 3 weeks prior when he started to get cough productive of brownish-blackish sputum and worsening dyspnea. [facility] Medical History Alcohol abuse, uncomplicated Atrial fibrillation Benign essential HTN Borderline hypercholesterolemia Chronic obstructive pulmonary disease, unspecified Environmental allergies GERD (gastroesophageal reflux disease) History of cardioversion Post-traumatic osteoarthritis, unspecified hand Surgical History History of cataract surgery History of esophagogastroduodenoscopy (EGD) History of removal of cyst Hx of colonoscopy Family History Father No problems noted. Mother No problems noted. Sister Pancreatic cancer Social History Housing: House Are you a primary progressive care manager to a significant other at home: No Do you presently have visiting nurse or other home services: No Alcohol intake: current Alcohol intake frequency: 0-2 drinks per day Alcohol type: hard liquor Patient Tobacco Use Status: Former Tobacco user Quit Date: 2016 Tobacco use type: Cigarette e-Cigarette/Vaping Use: Never Used Second Hand Smoke Exposure: No Substance Use Type: Marijuana service: No Current occupational status: retired Cognitive needs: No Hearing needs: No Vision needs: Yes (Reading glasses) Review of Systems Const Denies daytime sleepiness, Denies excessive sweating, Denies fatigue, Denies fever(s), Denies lethargy, Denies malaise, Denies night sweats, Denies snoring and Denies weight loss Eyes Denies blurry vision and Denies itchy eyes ENT Denies nasal congestion, Denies post nasal drip, Denies sinus pain, Denies sinus pressure and Denies other ( Thrush) Card Denies chest pain, Denies pedal edema, Denies dyspnea, Denies orthopnea and Denies paroxysmal nocturnal dyspnea Resp Reports cough, Denies hemoptysis, Reports excessive phlegm production, Denies dyspnea, Denies snoring and Denies wheezing GI Denies abdominal pain and Denies heartburn Musc Denies myalgias, Denies arthralgias and Denies joint swelling Skin/Breast Denies rash Neuro Denies memory loss and Denies seizure-like activity Psych Denies abnormal sleep pattern, Denies anxiety and Denies memory loss Endo Denies excessive sweating, Denies fatigue and Denies heat intolerance Dave/Lymph Denies easy bruising Aller/Immun Denies itchy eyes, Denies seasonal rhinorrhea and Denies wheezing Physical Exam Vital Signs: Last Vital Signs Pulse 99 01/13/23 14:51 BP 119/67 01/13/23 14:51 Pulse Ox 96 01/13/23 14:51 Oxygen Delivery Method Room Air 01/13/23 14:51 BMI result Body Mass Index 25.1 Const General: no acute distress and alert Nutritional Appearance: not obese Orientation/consciousness: Other orientation findings ( oriented) HEENT Head: Yes atraumatic Eyes General: appearance normal, both eyes and all related structures Sclerae: sclerae normal EOM: EOMs intact bilaterally Neck Neck: Yes supple Lymphatic: no lymphadenopathy noted Resp Effort & Inspection: normal respiratory effort and no use of accessory muscles Auscultation: clear to auscultation bilaterally Cardio Rate: regular rate Rhythm: regular rhythm Heart sounds: no gallops, no murmurs and no rubs Skin General skin exam: other ( warm) Extrem General: No clubbing, No cyanosis and No edema Assessment & Plan Assessment & Plan (1) Asthma-COPD overlap syndrome: Code(s): J44.9 - Chronic obstructive pulmonary disease, unspecified Plan: Previously reasonably controlled on Stiolto, albuterol, duo nebs, and Flovent. Now with what appears to be bronchitic exacerbation. Will treat with a course of azithromycin and prednisone. Medications: New azithromycin For 250 mg dose pack: take 500 mg today (day 1), then 250 mg for 4 days (days 2-5) PO 6 tabs 0RF Changed From prednisone take first thing in the morning with food or milk never on an empty stomach 60 mg (3 x 20 mg) PO DAILY 7 days 21 tabs 0RF L23.9 - Allergic contact dermatitis, unspecified cause To prednisone take first thing in the morning with food or milk never on an empty stomach 40 mg (2 x 20 mg) PO DAILY 10 tabs 0RF 5 days L23.9 - Allergic contact dermatitis, unspecified cause Coding Level of Care Code Est Pt Level 3 (87355) Diagnoses Asthma-COPD overlap syndrome J44.9
[2023-01-13 14:51] VITALS: BP 119/67; PULSE 99; O2SAT 96; BMI 25.1
== END 2023-01-13 15:07 | disposition home or self-care (01) ==
PROVIDERS: PCP Family Medicine; Visit Provider Internal Medicine Pulmonary Disease
DX: J44.9 Chronic obstructive pulmonary disease, unspecified (principal)
CPT/HCPCS: 99213

== ENCOUNTER → 2023-01-13 14:49 | Outpatient (BNVA) | payer MEDICARE, SELFPAY | PROVIDERS: PCP Family Medicine; Visit Provider Internal Medicine Pulmonary Disease | DX: J44.9 Chronic obstructive pulmonary disease, unspecified (principal) | CPT/HCPCS: 99212 ==

== ENCOUNTER 2023-03-10 09:25 | Outpatient (AMB) | payer MEDICARE, SELFPAY ==
--- NOTE | 2023-03-10 09:28 | A.OFFPC_ITS ---
Vital Signs 03/10/23 09:29 Height 6 ft 3 in Weight 204 lb BMI 25.5 BP 132/64 Blood Pressure Location Lt brachial Position Sitting Respiration 16 Pulse 130 H Pulse Source Pulse Oximeter Pulse Oximetry (%) 95 Oxygen Delivery Method Room Air Intake Visit Reasons: Transfer of Care Intake Note: Patient is here today for a transfer of care from . Patient reports he would like to have labs ordered. Patient reports he would like to refill his omeprazole 20mg today, he is out of this medication. Patient requested to know his vitals, as they were reported patient learned his pulse was a little elevated to which he notes, it was probably the beer I had this morning. Patient reports he has no concerns at this time. 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 Accompanied by: Self / Same As Patient Allergies pollen extracts Allergy (Mild, Verified 03/10/23 09:36) Unknown Medication List - Last Reconciled 03/10/23 by Geoffrey Nunn MD albuterol sulfate 90 mcg/actuation 2 puffs PO Q4-6H PRN apixaban (Eliquis) 5 mg PO BID 1 month atorvastatin 20 mg PO DAILY blood pressure test kit-large As directed desonide 0.05% 1 appl topical TID PRN diltiazem HCl 300 mg PO QPM 90 days diphenhydramine HCl 25 mg PO BEDTIME PRN 10 days Flovent HFA 220 mcg/actuation (fluticasone propionate) 2 puffs PO BID 30 days NS hydrocortisone 1% 1 appl topical BID PRN ipratropium-albuterol 0.5 mg-3 mg(2.5 mg base)/3 mL 3 mL inhalation Q6H PRN 30 days latanoprost 0.005% 1 drp ophthalmic-Right BEDTIME lisinopril 10 mg PO QPM 90 days lisinopril-hydrochlorothiazide 20-25 mg 1 tab PO DAILY methylcellulose (laxative) (Citrucel) 500 mg PO BID omeprazole 20 mg PO BID tiotropium-olodaterol 2.5-2.5 mcg/actuation (Stiolto Respimat) 2 puffs inhalation DAILY Tobacco use date assessed: 03/10/23 Fall risk assessment: 1 Fall in past year ( [place] Last assessed Fall Risk: 03/10/23 Dental Screening Dental Screen Date: 03/10/23 Did you have a dental visit in the last 12 months?: Yes Did you have a dental problem in the last 6 months where you did not have access to dental care?: No Was dental information given to patient?: Patient has dentist HPI Transfer of Care HPI Details Transfer of Care Prior PCP:? [facility] Last office visit/CPE: Acute issue(s): Tachycardia Omeprazole refill PMHx: AFib, Hypertension, Hypercholesterolemia GERD, Asthma-COPD overlap syndrome SocHx:??Consumes?about?12?alcoholic?drinks?per?day. Quit?smoking?a?few?years?ago?but?says?he?is?now?hooked ?on?nicotine?4?mg?gum?tablets PFSH Medical History History of cardioversion Atrial fibrillation Environmental allergies Post-traumatic osteoarthritis, unspecified hand Chronic obstructive pulmonary disease, unspecified GERD (gastroesophageal reflux disease) Alcohol abuse, uncomplicated Borderline hypercholesterolemia Benign essential HTN Surgical History History of esophagogastroduodenoscopy (EGD) Hx of colonoscopy History of removal of cyst History of cataract surgery Family History Father No problems noted. Mother No problems noted. Sister Pancreatic cancer (Updated 03/10/23 @ 09:42 by Sigrid Au CMA) Household Members: Spouse Housing: House Are you a primary caregivers homecare to a significant other at home: No Do you presently have visiting nurse or other home services: No Alcohol intake: current Alcohol intake frequency: 0-2 drinks per day Alcohol type: hard liquor Patient Tobacco Use Status: Former Tobacco user Quit Date: 2016 Tobacco use type: Cigarette e-Cigarette/Vaping Use: Never Used Second Hand Smoke Exposure: No Substance Use Type: Marijuana service: No Current occupational status: retired Cognitive needs: No Hearing needs: No Vision needs: Yes (Reading glasses) Questionnaire Thrive Questionnaire Date Thrive assessed: 05/08/22 JACK-7 AMB Questionnaire JACK-7 Date JACK - 7 assessed: 03/25/21 Source: Developed by Drs. Nikko Mak, Haley Jamison, Jesse Frederick and colleagues, with an educational emilia from [employer] ? IO. Review of Systems Const Denies chills, Denies fatigue, Denies fever(s), Denies headache(s) and Denies weakness ENT Denies dizziness and Denies headache(s) Card Denies dyspnea Resp Denies cough, Denies dyspnea, Denies wheezing and Denies other (shortness of breath) Musc Denies numbness and Denies tingling Neuro Denies dizziness, Denies headache(s), Denies numbness, Denies tingling and Denies weakness Psych Denies anxiety and Denies depression Endo Denies fatigue Aller/Immun Denies wheezing Physical exam (Primary Care) Vital Signs: Last Vital Signs Pulse 130 H 03/10/23 09:29 Resp 16 03/10/23 09:29 BP 132/64 03/10/23 09:29 Pulse Ox 95 03/10/23 09:29 Oxygen Delivery Method Room Air 03/10/23 09:29 BMI result Body Mass Index 25.5 Tobacco/Smoking Status: Tobacco use Status Tobacco use date assessed 03/10/23 03/10/23 09:42 Patient Tobacco Use Status Former Tobacco user 03/10/23 09:42 Tobacco use type Cigarette 03/10/23 09:42 e-Cigarette/Vaping Use Never Used 03/10/23 09:42 Thrive Assessment: Date of Thrive Assessment Date Thrive assessed 05/08/22 03/10/23 09:42 Const General: well developed; No acute distress Nutritional Appearance: well nourished Orientation/consciousness: patient oriented x3 HENMT Head: Yes normocephalic and Yes atraumatic Eyes General: appearance normal, both eyes and all related structures Pupils: Equal, round and reactive pupils present EOM: EOMs intact bilaterally Resp Effort & Inspection: normal respiratory effort Cardio Rate: tachycardic Neuro General: patient oriented x3 and gait normal Cranial nerves: Yes Equal, round and reactive pupils present Psych Affect: normal affect Office Procedures EKG [id number], Complete Assessment and Plan Assessment & Plan (1) Atrial fibrillation: Comment: Irregular pulse, reviewed Cardiology notes Code(s): I48.91 - Unspecified atrial fibrillation Qualifiers: Atrial fibrillation type: longstanding persistent Qualified Code(s): I48.11 - Longstanding persistent atrial fibrillation Plan: He?is?on?Eliquis?and?diltiazem EKG:??Atrial?fibrillation??HR 89, PVCs, normal?axis, old?septal?infarct/age?undetermined. No?ST-T-wave?changes Continue?current?medication?regimen Has?follow-up?with?Cardiology?in?2?weeks (2) Hypertension: Code(s): I10 - Essential (primary) hypertension Plan: Blood?pressure?is?controlled.??Goal?is?less?than?140/90 Continue?current?medication?regimen (3) GERD (gastroesophageal reflux disease): Comment: Persistent reflux-better control lifestyle changes PPI-never had Arita's screening Code(s): K21.9 - Gastro-esophageal reflux disease without esophagitis Qualifiers: Esophagitis presence: esophagitis presence not specified Qualified Code(s): K21.9 - Gastro-esophageal reflux disease without esophagitis Plan: Continue?omeprazole (4) Tachycardia: Code(s): R00.0 - Tachycardia, unspecified (5) Alcohol abuse, uncomplicated: Comment: Reinforced dangers of drinking alcohol. Code(s): F10.10 - Alcohol abuse, uncomplicated Plan: Encouraged?weaning Offered?referral?to?comprehensive?Care?Clinic?but?patient?wo uld?like?to?try?weaning?down?by?himself?1st. Will?readdress (6) Laboratory exam ordered as part of routine general medical examination: Code(s): Z00.00 - Encounter for general adult medical examination without abnormal findings Plan: Check?lab Orders: Orders Complete Blood Count Auto Diff Today Z00.00 - Encounter for general adult medical examination without abnormal findings Comprehensive [place]. Panel Fast Today Z00.00 - Encounter for general adult medical examination without abnormal findings Prostate Specific Antigen Scr Today Z12.5 - Encounter for screening for malignant neoplasm of prostate UA and rflx microscopic Today Z00.00 - Encounter for general adult medical examination without abnormal findings Lipid Panel Today Z00.00 - Encounter for general adult medical examination without abnormal findings Microalbumin, Random (w Creat) Today I10 - Essential (primary) hypertension TSH reflex Free T4 Today Z00.00 - Encounter for general adult medical examination without abnormal findings AMB EKG-In Office Today R00.2 - Palpitations Medications: Refilled omeprazole 20 mg PO BID 180 caps 2RF Coding Level of Care Code Est Pt Level 4 (37275) Diagnoses Longstanding persistent atrial fibrillation I48.11 Atrial fibrillation type: longstanding persistent Hypertension I10 Gastroesophageal reflux disease, unspecified whether esophagitis present K21.9 Esophagitis presence: esophagitis presence not specified Tachycardia R00.0 Alcohol abuse, uncomplicated F10.10 Laboratory exam ordered as part of routine general medical examination Z00.00 CPT Codes EKG - CPT: 52972-[id number], Complete ([id number])
[2023-03-10 09:29] VITALS: BP 132/64; PULSE 130; RESP 16; O2SAT 95; BMI 25.5
== END 2023-03-10 10:51 | disposition home or self-care (01) ==
PROVIDERS: PCP Family Medicine; Visit Provider Family Medicine
DX: I48.11 Longstanding persistent atrial fibrillation (principal); I10 Essential (primary) hypertension; K21.9 Gastro-esophageal reflux disease without esophagitis; R00.0 Tachycardia, unspecified; F10.10 Alcohol abuse, uncomplicated; Z00.00 Encounter for general adult medical examination without abnormal findings
CPT/HCPCS: 93000; 99214

== ENCOUNTER 2023-03-23 08:15 | Outpatient (AMB) | payer MEDICARE, SELFPAY ==
[2023-03-23 08:26] VITALS: BP 130/68; PULSE 92; BMI 25.6
--- NOTE | 2023-03-23 08:26 | A.OFFVIS_ITS ---
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: No Allergies pollen extracts Allergy (Mild, Verified 03/10/23 09:36) Unknown Medication List - Last Reconciled 03/23/23 by Red Miles MD albuterol sulfate 90 mcg/actuation 2 puffs PO Q4-6H PRN apixaban (Eliquis) 5 mg PO BID 1 month atorvastatin 20 mg PO DAILY blood pressure test kit-large As directed desonide 0.05% 1 appl topical TID PRN diltiazem HCl 300 mg PO QPM 90 days diphenhydramine HCl 25 mg PO BEDTIME PRN 10 days Flovent HFA 220 mcg/actuation (fluticasone propionate) 2 puffs PO BID 30 days NS hydrocortisone 1% 1 appl topical BID PRN ipratropium-albuterol 0.5 mg-3 mg(2.5 mg base)/3 mL 3 mL inhalation Q6H PRN 30 days latanoprost 0.005% 1 drp ophthalmic-Right BEDTIME lisinopril 10 mg PO QPM 90 days lisinopril-hydrochlorothiazide 20-25 mg 1 tab PO DAILY methylcellulose (laxative) (Citrucel) 500 mg PO BID omeprazole 20 mg PO BID tiotropium-olodaterol 2.5-2.5 mcg/actuation (Stiolto Respimat) 2 puffs inhalation DAILY HPI HPI Comments History of Present Illness Details Sebastian comes for his annual follow-up. He has been doing well from cardiac perspective. Maintains activity level as tolerated. Not exercising as much as before. Denies any worsening shortness of breath. No orthopnea, PND, leg edema. No exertional chest pain. Denies any lightheadedness, syncope. No bleeding issues or neurologic events. No recent blood work. Tolerating all his medications [facility] Medical History History of cardioversion Atrial fibrillation Environmental allergies Post-traumatic osteoarthritis, unspecified hand Chronic obstructive pulmonary disease, unspecified GERD (gastroesophageal reflux disease) Alcohol abuse, uncomplicated Borderline hypercholesterolemia Benign essential HTN Surgical History History of esophagogastroduodenoscopy (EGD) Hx of colonoscopy History of removal of cyst History of cataract surgery Family History Father No problems noted. Mother No problems noted. Sister Pancreatic cancer Social History Household Members: Spouse Housing: House Are you a primary resident care assistant to a significant other at home: No Do you presently have visiting nurse or other home services: No Alcohol intake: current Alcohol intake frequency: 0-2 drinks per day Alcohol type: hard liquor Patient Tobacco Use Status: Former Tobacco user Quit Date: 2016 Tobacco use type: Cigarette e-Cigarette/Vaping Use: Never Used Second Hand Smoke Exposure: No Substance Use Type: Marijuana service: No Current occupational status: retired Cognitive needs: No Hearing needs: No Vision needs: Yes (Reading glasses) Review of Systems Const Denies chills, Denies fatigue, Denies fever(s), Denies frequent falls, Denies weakness, Denies weight gain and Denies weight loss ENT Denies dizziness Card Denies chest pain, Denies leg edema, Denies lightheadedness, Denies palpitations, Denies dyspnea, Denies dyspnea on exertion, Denies orthopnea and Denies other (loss of consciousness) Resp Denies cough, Denies dyspnea and Denies dyspnea on exertion GI Denies hematochezia and Denies change in stool character Musc Denies abnormal gait, Denies muscle weakness, Denies numbness, Denies radiating pain into limb and Denies tingling Neuro Denies Abnormal speech present, Denies abnormal gait, Denies dizziness, Denies frequent falls, Denies numbness, Denies tingling and Denies weakness Endo Denies fatigue and Denies palpitations Physical Exam Vital Signs: Last Vital Signs Pulse 92 03/23/23 08:26 BP 130/68 03/23/23 08:26 BMI result Body Mass Index 25.6 Const General: cooperative, comfortable, no acute distress, alert and awake Nutritional Appearance: overweight Orientation/consciousness: patient oriented x3 Limitations: no limitations HEENT Head: Yes normocephalic and Yes atraumatic Neck Neck: Yes trachea midline and Yes supple Chest Chest palpation & inspection: normal inspection of the chest Resp Effort & Inspection: normal respiratory effort Auscultation: no crackles, no rales, no rhonchi, no wheezes and diminished lung sounds Cardio Jugular venous distension: no JVD Palpation: normal PMI Rate: tachycardic Rhythm: abnormal rhythm irregularly irregular Heart sounds: S1 normal heart sound present, S2 normal heart sound present, no click, no gallops, no murmurs and no rubs GI Auscultation: normal bowel sounds Skin General skin exam: no rashes or lesions noted Neuro General: patient oriented x3 and no focal motor deficits Speech: No Abnormal speech present Extrem General: Yes no clubbing, cyanosis or edema Psych Appearance: grossly normal Office Procedures EKG Details: EKG shows atrial fibrillation with PVCs with nonspecific ST T wave changes [id number], Complete Assessment & Plan Assessment & Plan (1) Atrial fibrillation: Comment: Irregular pulse, reviewed Cardiology notes Code(s): I48.91 - Unspecified atrial fibrillation Qualifiers: Atrial fibrillation type: longstanding persistent Qualified Code(s): I48.11 - Longstanding persistent atrial fibrillation Plan: Chronic rate control atrial fibrillation which is currently well optimized. No signs or symptoms of heart failure. Has failed rhythm control approach and given last left atrial enlargement unlikely to pursue rhythm control approach. Continue rate control with Cardizem. Rate appears adequately control at this point time. Continue full oral anticoagulation, currently on Eliquis 5 mg b.i.d.. Semi annual renal function test should be pursued. Follow-up echocardiogram next year. Signs and symptoms of heart failure were discussed. Continue maintain activity level as tolerated. (2) Hypertension: Code(s): I10 - Essential (primary) hypertension Plan: Hypertension which is currently well optimized advised to monitor blood pressure at home maintain a log. Goal blood pressure less than 130/84. Continue current therapy with Cardizem as well as lisinopril. Importance of good blood pressure control was discussed. Continue statin therapy with target goal LDL less than per dL. Will follow up in the clinic in 1 year's time, sooner p.r.n.. Thank you for allowing me to partake in his care Orders: Orders Basic Metabolic Panel Today I48.11 - Longstanding persistent atrial fibrillation Complete Blood Count no Diff Today I48.11 - Longstanding persistent atrial fibrillation CA echo transthoracic complete 50 Weeks I48.11 - Longstanding persistent atrial fibrillation Coding Level of Care Code Est Pt Level 4 (88192) Diagnoses Longstanding persistent atrial fibrillation I48.11 Atrial fibrillation type: longstanding persistent Hypertension I10 CPT Codes EKG - CPT: 37830-[id number], Complete ([id number])
== END 2023-03-23 08:45 | disposition home or self-care (01) ==
PROVIDERS: Visit Provider Internal Medicine Cardiovascular Disease
DX: I48.11 Longstanding persistent atrial fibrillation (principal); I10 Essential (primary) hypertension
CPT/HCPCS: 93010; 99214

== ENCOUNTER → 2023-03-23 08:15 | Outpatient (BNVA) | payer MEDICARE, SELFPAY | PROVIDERS: Visit Provider Internal Medicine Cardiovascular Disease | DX: I48.11 Longstanding persistent atrial fibrillation (principal); I10 Essential (primary) hypertension; Z98.890 Other specified postprocedural states | CPT/HCPCS: 93005; 99212 ==

== ENCOUNTER 2023-04-09 07:10 | Outpatient (REF) | payer MEDICARE, SELFPAY ==
[2023-04-09 11:34] LABS: MANUAL DIFF FLAG NO
[2023-04-09 12:03] LABS: Basophils Absolute Auto 0.1 X10*3/uL (0.0-0.2); Basophils Percent Auto 0.6 % (0-2); Eosinophils Absolute Auto 0.1 X10*3/uL (0.0-0.4); Eosinophils Percent Auto 0.6 % (0-4); Hematocrit 39.6 % (42.0-52.0); Hemoglobin 14.4 g/dl (14.0-18.0); Imm Gran Abs Auto 0.05 X10*3/uL (0.00-0.03); Imm Gran Pct Auto 0.6 % (0.0-0.4); Lymphocytes Absolute Auto 1.4 X10*3/uL (1.2-4.9); Lymphocytes Percent Auto 16.8 % (20-40); Mean Corpuscular HGB Conc 36.4 g/dl (31.0-36.0); Mean Corpuscular Hemoglobin 33.8 pg (27.0-33.0); Mean Platelet Volume 9.6 fL (9.4-12.4); Monocytes Absolute Auto 0.8 X10*3/uL (0.1-1.2); Monocytes Percent Auto 9.8 % (2-11); Neutrophils Absolute Auto 5.8 x10*3/uL (2.0-8.3); Neutrophils Percent Auto 71.6 % (45-73); Platelet Count 242 X10*3/uL (160-400); Red Blood Count 4.26 X10*6/uL (4.60-5.80); Red Cell Distribution Width 12.1 % (11.0-16.0); White Blood Count 8.1 X10*3/uL (4.8-10.8)
[2023-04-09 12:23] LABS: Alanine Aminotransferase 31 U/L (0-40); Albumin Level 4.1 g/dL (3.5-5.0); Alkaline Phosphatase 98 U/L (39-117); Anion Gap 15 (12-20); Aspartate Amino Transferase 40 U/L (5-37); Bilirubin Total 1.1 mg/dL (0.0-1.0); Blood Urea Nitrogen 8 mg/dL (9-16); Calcium 9.2 mg/dL (8.4-10.2); Carbon Dioxide 27 mmol/L (22-29); Chloride 91 mmol/L (96-108); Cholesterol 121 mg/dL (<200); Estimated Glomerular Filt Rate > 60; Glucose Fasting 124 mg/dL (60-99); Glucose Random 124 mg/dL (60-115); HDL Cholesterol 56 mg/dL (>40); LDL Cholesterol Calculated 46 mg/dL (<100); Potassium 3.3 mmol/L (3.3-5.1); Sodium 130 mmol/L (135-145); Total Protein 6.8 g/dL (6.5-8.0); Triglycerides 98 mg/dL (<150)
[2023-04-09 12:26] LABS: Prostate Specific Antigen Scr 2.98 ng/mL (<0.05-4.0)
[2023-04-09 12:29] LABS: TSH reflex Free T4 2.31 uIU/mL (0.32-4.0)
[2023-04-09 12:38] LABS: Microalbum/Creatinine Ratio Ur 42.8 ug/mg cr (<30)
[2023-04-09 13:20] LABS: Appearance Urine Clear; Color Urine Dark Yellow; Glucose Urine UA Negative (Negative); Leukocyte Esterase Urine Trace (Negative); Nitrite Urine Negative (Negative); PH 8.5 (5.0-9.0); UMIC TRIGGER UA YES; Urine Blood Negative (Negative); Urine Ketones Trace mg/dL (Negative); Urine Protein 30 (1+) mg/dL (Neg-Trace)
[2023-04-09 13:25] LABS: Bacteria Urine None Seen (None Seen); Hyaline Casts Urine 0-2 /LPF (0-2); Squamous Epithelial Cell Urine 0-2 /HPF (0-2); WBC Urine 0-5 /HPF (0-5)
== END 2023-04-09 07:11 | disposition home or self-care (01) ==
LOC: HO.WFDLDS 07:10
PROVIDERS: Visit Provider Family Medicine
DX: Z00.00 Encounter for general adult medical examination without abnormal findings (principal); I48.11 Longstanding persistent atrial fibrillation; I10 Essential (primary) hypertension; Z12.5 Encounter for screening for malignant neoplasm of prostate
CPT/HCPCS: 36415; 80048; 80053; 80061; 81001; 81003; 82043; 82570; 84153; 84443; 85025

== ENCOUNTER 2023-05-18 13:47 | Outpatient (AMB) | payer MEDICARE, SELFPAY ==
[2023-05-18 13:55] VITALS: BP 140/82; PULSE 74; O2SAT 95; BMI 25.7
--- NOTE | 2023-05-18 13:55 | MHC.PC.OV ---
Vital Signs 05/18/23 13:55 Height 6 ft 3 in Weight 206 lb BMI 25.7 BP 140/82 H Blood Pressure Location Lt brachial Pulse 74 Pulse Source Pulse Oximeter Pulse Oximetry (%) 95 Oxygen Delivery Method Room Air Intake Visit Reasons: Extended exam with f/u labs and health maint. Intake Note: Patient is here for an extended exam and follow up on labs. Allergies pollen extracts Allergy (Mild, Verified 05/18/23 13:57) Unknown Tobacco use date assessed: 05/18/23 Fall risk assessment: No Falls in past year Last assessed Fall Risk: 05/18/23 Dental Screening Dental Screen Date: 05/18/23 Did you have a dental visit in the last 12 months?: Yes Did you have a dental problem in the last 6 months where you did not have access to dental care?: No Was dental information given to patient?: Patient has dentist HPI Extended exam with f/u labs and health maint. HPI Details 73 y/o male presents for an extended exam with f/u labs and health maintenance. Labs were drawn 04/09/23. Reviewed labs with pt. Mild anemia. Hyponatremia. Elevated fasting glucose of 124. Elevated AST of 40. Triglycerides 98. TC 121. LDL 46. HDL 56. Microalb/Creat ratio 42.8. Blood pressure today 140/82. He is on lisinopril-HCTZ 20-25mg daily Pt reports diarrhea. [facility] Medical History History of cardioversion Atrial fibrillation Environmental allergies Post-traumatic osteoarthritis, unspecified hand Chronic obstructive pulmonary disease, unspecified GERD (gastroesophageal reflux disease) Alcohol abuse, uncomplicated Borderline hypercholesterolemia Benign essential HTN Surgical History History of esophagogastroduodenoscopy (EGD) Hx of colonoscopy History of removal of cyst History of cataract surgery Family History Father No problems noted. Mother No problems noted. Sister Pancreatic cancer Social History Household Members: Spouse Housing: House Are you a primary healthcare or medical to a significant other at home: No Do you presently have visiting nurse or other home services: No Alcohol intake: current Alcohol intake frequency: 0-2 drinks per day Alcohol type: hard liquor Patient Tobacco Use Status: Former Tobacco user Quit Date: 2016 Tobacco use type: Cigarette e-Cigarette/Vaping Use: Never Used Second Hand Smoke Exposure: No Substance Use Type: Marijuana service: No Current occupational status: retired Cognitive needs: No Hearing needs: No Vision needs: Yes (Reading glasses) Questionnaire PHQ-9 Over the last 2 weeks, how often have you been bothered by any of the following problems? 1. Little interest or pleasure in doing things: not at all 2. Feeling down, depressed, or hopeless: not at all 3. Trouble falling or staying asleep, or sleeping too much: not at all 4. Feeling tired or having little energy: not at all 5. Poor appetite or overeating: not at all 6. Feeling bad about yourself - or that you are a failure or have let yourself or your family down: not at all 7. Trouble concentrating on things, such as reading the newspaper or watching television: not at all 8. Moving or speaking so slowly that other people could have noticed. Or the opposite - being so fidgety or restless that you have been moving around a lot more than usual: not at all 9. Thoughts that you would be better off or of hurting yourself in some way: not at all Total score: 0 Depression Screening Interpretation: Negative Depression Screening Done: Yes Source: Developed by Drs. Nikko Mak, Haley Jamison, Jesse Frederick and colleagues, with an educational emilia from [employer]. Thrive Questionnaire Date Thrive assessed: 05/18/23 I am a: Patient What is your living situation today?: I have a steady place to live Within the past 12 months, did the food you bought not last and you didn't have the money to get more?: Never true Within the past 12 months, did you worry whether your food would run out before you got money to buy more?: Never true Do you have trouble paying for medicines?: No Do you have trouble getting transportation to medical appointments?: No Do you have trouble paying your heating and electricity bill?: No Do you have trouble taking care of your child, family member or friend?: No Do you have trouble with day-to-day activities such as bathing, preparing meals, shopping, managing finances, etc.?: No Are you currently unemployed and looking for a job?: No Are you interested in more education?: No THRIVE Score: 0 AUDIT C Alcohol Use Questionnaire (AUDIT-C) 1. How often do you have a drink containing alcohol?: 4 or more times a week 2. How many drinks containing alcohol do you have on a typical day when you are drinking?: 10 or more 3. How often do you have six or more drinks on one occasion?: Daily or almost daily Total Score: 12 JACK-7 AMB Questionnaire JACK-7 Date JACK - 7 assessed: 05/18/23 Feeling nervous, anxious, or on edge: 0 = Not at all Not being able to stop or control worryin = Not at all Worrying too much about different things: 0 = Not at all Trouble relaxin = Not at all Being so restless that it is hard to sit still: 0 = Not at all Becoming easily annoyed or irritable: 0 = Not at all Feeling afraid as if something awful might happen: 0 = Not at all Total JACK-7 score (0-4 normal; 5-9 mild; 10-14 moderate; 15-21 severe): 0 Source: Developed by Drs. Nikko Mak, Haley Jamison, Jesse Frederick and colleagues, with an educational emilia from [employer]. Review of Systems Const Denies chills, Denies fatigue, Denies fever(s), Denies headache(s) and Denies weakness Eyes Denies change in vision ENT Denies dizziness, Denies headache(s), Denies hearing loss, Denies nasal congestion, Denies sinus pain, Denies sinus pressure and Denies sore throat Card Denies chest pain, Denies lightheadedness, Denies dyspnea and Denies other (palpitations) Resp Denies cough, Denies dyspnea and Denies wheezing GI Denies abdominal pain, Denies melena, Denies hematochezia, Denies change in bowel habits, Denies dyspepsia, Denies diarrhea and Denies nausea Denies hematuria and Denies dysuria Musc Denies abnormal gait, Denies myalgias, Denies arthralgias, Denies numbness and Denies tingling Skin/Breast Denies rash, Denies unusual bruising and Denies wounds Neuro Denies abnormal gait, Denies dizziness, Denies headache(s), Denies memory loss, Denies numbness, Denies Sensory deficit (Neuro), Denies tingling and Denies weakness Psych Denies anxiety, Denies depression and Denies memory loss Endo Denies cold intolerance, Denies fatigue, Denies heat intolerance, Denies polydipsia and Denies polyuria Dave/Lymph Denies easy bleeding and Denies easy bruising Aller/Immun Denies wheezing Physical exam (Primary Care) Vital Signs: Last Vital Signs Pulse 74 05/18/23 13:55 BP 140/82 H 05/18/23 13:55 Pulse Ox 95 05/18/23 13:55 Oxygen Delivery Method Room Air 05/18/23 13:55 BMI result Body Mass Index 25.7 Tobacco/Smoking Status: Tobacco use Status Tobacco use date assessed 05/18/23 05/18/23 13:57 Patient Tobacco Use Status Former Tobacco user 05/18/23 13:57 Tobacco use type Cigarette 05/18/23 13:57 e-Cigarette/Vaping Use Never Used 05/18/23 13:57 PHQ-9: PHQ-9 Score PHQ-9: Total score 0 05/18/23 14:00 Depression Screening Interpretation: Negative Thrive Assessment: Date of Thrive Assessment Date Thrive assessed 05/18/23 05/18/23 14:00 Const General: no acute distress, well developed, alert and awake Nutritional Appearance: well nourished Orientation/consciousness: patient oriented x3 HENMT Head: Yes normocephalic and Yes atraumatic Ears: hearing grossly normal bilaterally and TM's normal bilaterally General nose exam: Normal external nose present and Normal nares present Mouth: Normal oral and palatal mucosa present and moist mucous membranes Teeth and gingiva: dentition normal Throat: Yes posterior oropharynx normal Eyes General: appearance normal, both eyes and all related structures Pupils: Equal, round and reactive pupils present and Pupil accommodation reflex normal EOM: EOMs intact bilaterally Neck Neck: Yes normal visual inspection, Yes no lymphadenopathy and Yes trachea midline Thyroid: Thyroid normal Carotids: no bruits Lymphatic: no lymphadenopathy noted Chest Chest palpation & inspection: normal inspection of the chest Resp Effort & Inspection: normal respiratory effort Auscultation: clear to auscultation bilaterally Cardio Rate: regular rate Rhythm: abnormal rhythm and abnormal rhythm irregularly irregular Heart sounds: S1 normal heart sound present, S2 normal heart sound present, no gallops, no murmurs and no rubs Bruits: no abdominal aortic bruits and no carotid bruits GI Palpation (GI): No Abdominal aortic bruit present, Soft to palpation, nontender, No hepatosplenomegaly present and No Rebound tenderness present Auscultation: normal bowel sounds General: Yes no CVA tenderness Back/Spine/Pelvis Back: no CVA tenderness Cervical Spine: cervical ROM normal and No Cervical spine tenderness Thoracic/Lumbar Spine: thoraco-lumbar ROM normal, No pain with thoraco-lumbar ROM, No thoracic spinal tenderness and No lumbar spinal tenderness Skin Lesions: no lesions Rashes: no rashes Trauma: no lacerations or abrasions Wounds: no wounds Nails: normal Neuro General: patient oriented x3 Cranial nerves: Yes Equal, round and reactive pupils present Cognition (Neuro): normal cognition Gait exam (Neuro): Normal gait present Motor exam (neuro): 5/5 motor strength present throughout Sensory Exam: No Sensory deficit (Neuro) Deep tendon reflexes (DTR's): Right patellar reflex intensity grade: 2+ and Left patellar reflex intensity grade: 2+ Extrem General: Yes normal to inspection and No edema Psych Appearance: grossly normal Affect: normal affect Attitude: cooperative Thought process: Normal thought process present Assessment and Plan Assessment & Plan (1) Hypertension: Code(s): I10 - Essential (primary) hypertension Plan: Blood?pressure?is?a?little?elevated. Microalbumin?is?elevated?as?well. Will?increase?lisinopril.??He?is?taking?20?mg?in?his?combo?pill?and?10?mg?separately. Will?increase?to?20mg separately?and?he?will?continue?20?mg?in?his?combo?pill?with?25?mg?hydrochlorothiazide. (2) Borderline anemia: Code(s): D64.9 - Anemia, unspecified Plan: Likely?secondary?to?alcohol?use Encouraged?weaning We?can?continue?to?follow (3) Elevated blood sugar: Code(s): R73.9 - Hyperglycemia, unspecified Plan: We?can?follow?the Will?repeat?with?next?blood?draw (4) Elevated AST (SGOT): Code(s): R74.01 - Elevation of levels of liver transaminase levels Plan: As?above,?likely?secondary?to?alcohol?use?and?I?encouraged?weaning. (5) Microalbuminuria: Code(s): R80.9 - Proteinuria, unspecified Plan: Increased?his?Shaheed-see?above (6) Hyponatremia: Code(s): E87.1 - Hypo-osmolality and hyponatremia Plan: Mild,?stable (7) Screening for colon cancer: Comment: Screening: Code(s): Z12.11 - Encounter for screening for malignant neoplasm of colon Plan: Gastroenterology?recommended?follow-up?in?2026.??He?is?up-to-date. (8) Screening for prostate cancer: Code(s): Z12.5 - Encounter for screening for malignant neoplasm of prostate Plan: PSA?is?within?normal?limits Will?continue?annual?screen (9) Atrial fibrillation: Comment: Irregular pulse, reviewed Cardiology notes Code(s): I48.91 - Unspecified atrial fibrillation Qualifiers: Atrial fibrillation type: longstanding persistent Qualified Code(s): I48.11 - Longstanding persistent atrial fibrillation Plan: Refilled?his?Eliquis He?is?rate?controlled?on?diltiazem Follow-up?with?Cardiology?as?recommended (10) Adult general medical examination: Code(s): Z00.00 - Encounter for general adult medical examination without abnormal findings Plan: 73-year-old?male?presents?for?extended?exam Encouraged?active?lifestyle?and?exercise Orders: Orders Complete Blood Count Auto Diff Today Z00.00 - Encounter for general adult medical examination without abnormal findings Comprehensive [place]. Panel Fast Today Z00.00 - Encounter for general adult medical examination without abnormal findings Microalbumin, Random (w Creat) Today I10 - Essential (primary) hypertension Medications: Changed From apixaban (Eliquis) 5 mg PO BID 1 month 60 tabs 8RF I48.91 - Unspecified atrial fibrillation To apixaban (Eliquis) 5 mg PO BID 180 tabs 8RF 90 days I48.91 - Unspecified atrial fibrillation From lisinopril 10 mg PO QPM 90 days 90 tabs 2RF for blood pressure To lisinopril 20 mg (2 x 10 mg) PO QPM 180 tabs 2RF for blood pressure 90 days Coding Level of Care Code Est Pt Level 4 (36315) Diagnoses Hypertension I10 Borderline anemia D64.9 Elevated blood sugar R73.9 Elevated AST (SGOT) R74.01 Microalbuminuria R80.9 Hyponatremia E87.1 Screening for colon cancer Z12.11 Screening for prostate cancer Z12.5 Longstanding persistent atrial fibrillation I48.11 Atrial fibrillation type: longstanding persistent Adult general medical examination Z00.00
== END 2023-05-18 14:36 | disposition home or self-care (01) ==
PROVIDERS: PCP Family Medicine; Visit Provider Family Medicine
DX: Z00.00 Encounter for general adult medical examination without abnormal findings (principal); I10 Essential (primary) hypertension; R74.01 Elevation of levels of liver transaminase levels; I48.11 Longstanding persistent atrial fibrillation; R80.9 Proteinuria, unspecified; D64.9 Anemia, unspecified; R73.9 Hyperglycemia, unspecified; E87.1 Hypo-osmolality and hyponatremia; Z12.11 Encounter for screening for malignant neoplasm of colon; Z12.5 Encounter for screening for malignant neoplasm of prostate
CPT/HCPCS: 99214; 99397

== ENCOUNTER 2023-07-31 14:03 | Outpatient (AMB) | payer MEDICARE, SELFPAY ==
[2023-07-31 14:04] VITALS: BP 127/72; PULSE 88; O2SAT 95; BMI 25.0
--- NOTE | 2023-07-31 14:04 | MHC.OFFVIS ---
Intake Vital Signs 07/31/23 14:04 Height 6 ft 3 in Weight 200 lb BMI 25.0 BP 127/72 Blood Pressure Location Rt brachial Position Sitting Pulse 88 Pulse Source Doppler Pulse Oximetry (%) 95 Oxygen Delivery Method Room Air Intake Visit Reasons: Shortness of breath Allergies pollen extracts Allergy (Mild, Verified 07/31/23 14:09) Unknown HPI Shortness of breath HPI Details 73-year-old gentleman, former greater than 50 pack-year smoker, quit 05/2018, followed for moderate asthma/COPD overlap syndrome and environmental allergies.? His symptoms have been well controlled on Stiolto, Flovent, duo nebs, and albuterol MDI. However, Flovent and Stiolto no longer covered. His Flovent has been changed to Arnuity. Patient does complain of approximately one-week history of worsening cough bringing up dark sputum. FORMERLY [facility], 1928–1983 Medical History History of cardioversion Atrial fibrillation Environmental allergies Post-traumatic osteoarthritis, unspecified hand Chronic obstructive pulmonary disease, unspecified GERD (gastroesophageal reflux disease) Alcohol abuse, uncomplicated Borderline hypercholesterolemia Benign essential HTN Surgical History History of esophagogastroduodenoscopy (EGD) Hx of colonoscopy History of removal of cyst History of cataract surgery Family History Father No problems noted. Mother No problems noted. Sister Pancreatic cancer Social History Household Members: Spouse Housing: House Are you a primary career based intervention coordinator to a significant other at home: No Do you presently have visiting nurse or other home services: No Alcohol intake: current Alcohol intake frequency: 0-2 drinks per day Alcohol type: hard liquor Patient Tobacco Use Status: Former Tobacco user Quit Date: 2016 Tobacco use type: Cigarette e-Cigarette/Vaping Use: Never Used Second Hand Smoke Exposure: No Substance Use Type: Marijuana service: No Current occupational status: retired Cognitive needs: No Hearing needs: No Vision needs: Yes (Reading glasses) Review of Systems Const Denies daytime sleepiness, Denies excessive sweating, Denies fatigue, Denies fever(s), Denies lethargy, Denies malaise, Denies night sweats, Denies snoring and Denies weight loss Eyes Denies blurry vision and Denies itchy eyes ENT Denies nasal congestion, Denies post nasal drip, Denies sinus pain, Denies sinus pressure and Denies other ( Thrush) Card Denies chest pain, Denies pedal edema, Denies dyspnea, Denies orthopnea and Denies paroxysmal nocturnal dyspnea Resp Reports cough, Denies hemoptysis, Reports excessive phlegm production, Denies dyspnea, Denies snoring and Denies wheezing GI Denies abdominal pain and Denies heartburn Musc Denies myalgias, Denies arthralgias and Denies joint swelling Skin/Breast Denies rash Neuro Denies memory loss and Denies seizure-like activity Psych Denies abnormal sleep pattern, Denies anxiety and Denies memory loss Endo Denies excessive sweating, Denies fatigue and Denies heat intolerance Dave/Lymph Denies easy bruising Aller/Immun Denies itchy eyes, Denies seasonal rhinorrhea and Denies wheezing Physical Exam Vital Signs: Last Vital Signs Pulse 88 07/31/23 14:04 BP 127/72 07/31/23 14:04 Pulse Ox 95 07/31/23 14:04 Oxygen Delivery Method Room Air 07/31/23 14:04 BMI result Body Mass Index 25.0 Const General: no acute distress and alert Nutritional Appearance: not obese Orientation/consciousness: Other orientation findings ( oriented) HEENT Head: Yes atraumatic Eyes General: appearance normal, both eyes and all related structures Sclerae: sclerae normal EOM: EOMs intact bilaterally Neck Neck: Yes supple Lymphatic: no lymphadenopathy noted Resp Effort & Inspection: normal respiratory effort and no use of accessory muscles Auscultation: clear to auscultation bilaterally Cardio Rate: regular rate Rhythm: regular rhythm Heart sounds: no gallops, no murmurs and no rubs Skin General skin exam: other ( warm) Extrem General: No clubbing, No cyanosis and No edema Assessment & Plan Assessment & Plan (1) Asthma-COPD overlap syndrome: Code(s): J44.9 - Chronic obstructive pulmonary disease, unspecified Plan: Suboptimally controlled as patient no longer has Stiolto. Changed to Anoro. Continue Arnuity and duo nebs/albuterol MDI. (2) Personal history of nicotine dependence: Code(s): Z87.891 - Personal history of nicotine dependence Plan: Will obtain CT lung cancer screening. Orders: Orders CT lung screening Today Z87.891 - Personal history of nicotine dependence Medications: New umeclidinium-vilanterol 62.5-25 mcg/actuation (Anoro Ellipta) 1 inh inhalation DAILY 30 days 1 ea 6RF Discontinued tiotropium-olodaterol 2.5-2.5 mcg/actuation (Stiolto Respimat) Discontinued Reason: Doctor's Order 2 puffs inhalation DAILY 4 mL 6RF Coding Level of Care Code Est Pt Level 4 (18603) Diagnoses Asthma-COPD overlap syndrome J44.9 Personal history of nicotine dependence Z87.891
== END 2023-07-31 14:17 | disposition home or self-care (01) ==
PROVIDERS: PCP Family Medicine; Visit Provider Internal Medicine Pulmonary Disease
DX: J44.9 Chronic obstructive pulmonary disease, unspecified (principal); Z87.891 Personal history of nicotine dependence
CPT/HCPCS: 99214

== ENCOUNTER → 2023-07-31 14:03 | Outpatient (BNVA) | payer MEDICARE, SELFPAY | PROVIDERS: PCP Family Medicine; Visit Provider Internal Medicine Pulmonary Disease | DX: J44.9 Chronic obstructive pulmonary disease, unspecified (principal); Z87.891 Personal history of nicotine dependence | CPT/HCPCS: 99212 ==

== ENCOUNTER 2023-08-05 07:54 | Outpatient (REF) | payer MEDICARE, SELFPAY ==
[2023-08-05 11:21] LABS: MANUAL DIFF FLAG NO
[2023-08-05 11:44] LABS: Appearance Urine Clear; Color Urine Dark Yellow; Glucose Urine UA Negative (Negative); Leukocyte Esterase Urine Negative (Negative); Nitrite Urine Negative (Negative); PH 7.5 (5.0-9.0); Specific Gravity - Urine 1.015 (1.005-1.025); UMIC TRIGGER UA YES; Urine Blood Negative (Negative); Urine Ketones Negative (Negative); Urine Protein 30 (1+) mg/dL (Neg-Trace)
[2023-08-05 11:47] LABS: Basophils Absolute Auto 0.1 X10*3/uL (0.0-0.2); Basophils Percent Auto 0.6 % (0-2); Eosinophils Percent Auto 0.5 % (0-4); Hematocrit 42.2 % (42.0-52.0); Hemoglobin 14.9 g/dl (14.0-18.0); Imm Gran Abs Auto 0.08 X10*3/uL (0.00-0.03); Imm Gran Pct Auto 0.9 % (0.0-0.4); Lymphocytes Absolute Auto 1.2 X10*3/uL (1.2-4.9); Lymphocytes Percent Auto 13.6 % (20-40); Mean Corpuscular HGB Conc 35.3 g/dl (31.0-36.0); Mean Corpuscular Volume 93.4 fL (80.0-98.0); Mean Platelet Volume 9.4 fL (9.4-12.4); Monocytes Absolute Auto 0.9 X10*3/uL (0.1-1.2); Monocytes Percent Auto 9.8 % (2-11); Neutrophils Absolute Auto 6.6 x10*3/uL (2.0-8.3); Neutrophils Percent Auto 74.6 % (45-73); Platelet Count 276 X10*3/uL (160-400); Red Blood Count 4.52 X10*6/uL (4.60-5.80); Red Cell Distribution Width 12.3 % (11.0-16.0); White Blood Count 8.8 X10*3/uL (4.8-10.8)
[2023-08-05 11:54] LABS: Bacteria Urine None Seen (None Seen); Hyaline Casts Urine 0-2 /LPF (0-2); Squamous Epithelial Cell Urine 0-2 /HPF (0-2); WBC Urine 0-5 /HPF (0-5)
[2023-08-05 11:56] LABS: RBC Urine 0-2 /HPF (0-2)
[2023-08-05 12:29] LABS: Creatinine Urine 144.14 mg/dL; Microalbum/Creatinine Ratio Ur 87.4 ug/mg cr (<30)
[2023-08-05 12:34] LABS: Alanine Aminotransferase 26 U/L (0-40); Albumin Level 4.1 g/dL (3.5-5.0); Alkaline Phosphatase 110 U/L (39-117); Anion Gap 14 (12-20); Aspartate Amino Transferase 36 U/L (5-37); Bilirubin Total 0.9 mg/dL (0.0-1.0); Blood Urea Nitrogen 5 mg/dL (9-16); Calcium 9.4 mg/dL (8.4-10.2); Carbon Dioxide 29 mmol/L (22-29); Chloride 93 mmol/L (96-108); Estimated Glomerular Filt Rate > 60; Glucose Fasting 105 mg/dL (60-99); Potassium 3.4 mmol/L (3.3-5.1); Sodium 133 mmol/L (135-145); Total Protein 7.1 g/dL (6.5-8.0)
== END 2023-08-05 07:55 | disposition home or self-care (01) ==
LOC: HO.WFDLDS 07:54
PROVIDERS: Visit Provider Family Medicine
DX: Z00.00 Encounter for general adult medical examination without abnormal findings (principal); I10 Essential (primary) hypertension
CPT/HCPCS: 36415; 80053; 81001; 82043; 82570; 85025

== ENCOUNTER 2023-08-10 11:41 | Outpatient (AMB) | payer MEDICARE, SELFPAY ==
[2023-08-10 12:06] VITALS: BP 122/68; PULSE 80; O2SAT 96; BMI 25.3
--- NOTE | 2023-08-10 12:06 | A.OFFPC_ITS ---
Vital Signs 08/10/23 12:06 Height 6 ft 3 in Weight 202 lb 8 oz BMI 25.3 BP 122/68 Blood Pressure Location Rt brachial Position Sitting Pulse 80 Pulse Source Pulse Oximeter Pulse Oximetry (%) 96 Oxygen Delivery Method Room Air Intake Visit Reasons: f/u chronic conditions Intake Note: Patient is here for follow up on chronic conditions, and blood work. Allergies pollen extracts Allergy (Mild, Verified 08/10/23 12:08) Unknown Tobacco use date assessed: 08/10/23 Fall risk assessment: 1 Fall in past year Last assessed Fall Risk: 08/10/23 Dental Screening Dental Screen Date: 05/18/23 HPI f/u chronic conditions HPI Details 73 y/o male presents to f/u hypertension . Had increased his lisinopril last office visit. Blood pressure today 122/68. He is on lisinopril-hydrochlorothiazide 20-25mg daily. Labs were drawn 08/05/23. Reviewed labs with pt. Borderline anemia has resolved. AST within normal range. Pt reports neuropathy/pain of his bilateral feet. [facility] Medical History History of cardioversion Atrial fibrillation Environmental allergies Post-traumatic osteoarthritis, unspecified hand Chronic obstructive pulmonary disease, unspecified GERD (gastroesophageal reflux disease) Alcohol abuse, uncomplicated Borderline hypercholesterolemia Benign essential HTN Surgical History History of esophagogastroduodenoscopy (EGD) Hx of colonoscopy History of removal of cyst History of cataract surgery Family History Father No problems noted. Mother No problems noted. Sister Pancreatic cancer Social History Household Members: Spouse Housing: House Are you a primary career development engineer to a significant other at home: No Do you presently have visiting nurse or other home services: No Alcohol intake: current Alcohol intake frequency: 0-2 drinks per day Alcohol type: hard liquor Patient Tobacco Use Status: Former Tobacco user Quit Date: 2016 Tobacco use type: Cigarette e-Cigarette/Vaping Use: Never Used Second Hand Smoke Exposure: No Substance Use Type: Marijuana service: No Current occupational status: retired Cognitive needs: No Hearing needs: No Vision needs: Yes (Reading glasses) Questionnaire Thrive Questionnaire Date Thrive assessed: 05/18/23 JACK-7 AMB Questionnaire JACK-7 Date JACK - 7 assessed: 05/18/23 Source: Developed by Drs. Nikko Mak, Haley Jamison, Jesse Frederick and colleagues, with an educational emilia from [employer]. Review of Systems Const Denies chills, Denies fatigue, Denies fever(s), Denies headache(s) and Denies weakness ENT Denies dizziness and Denies headache(s) Card Denies dyspnea Resp Denies cough, Denies dyspnea, Denies wheezing and Denies other (shortness of breath) Musc Denies numbness and Denies tingling Neuro Denies dizziness, Denies headache(s), Denies numbness, Denies tingling and Denies weakness Psych Denies anxiety and Denies depression Endo Denies fatigue Aller/Immun Denies wheezing Physical exam (Primary Care) Vital Signs: Last Vital Signs Pulse 80 08/10/23 12:06 BP 122/68 08/10/23 12:06 Pulse Ox 96 08/10/23 12:06 Oxygen Delivery Method Room Air 08/10/23 12:06 BMI result Body Mass Index 25.3 Tobacco/Smoking Status: Tobacco use Status Tobacco use date assessed 08/10/23 08/10/23 12:09 Patient Tobacco Use Status Former Tobacco user 08/10/23 12:09 Tobacco use type Cigarette 08/10/23 12:09 e-Cigarette/Vaping Use Never Used 08/10/23 12:09 Thrive Assessment: Date of Thrive Assessment Date Thrive assessed 05/18/23 08/10/23 12:09 Const General: well developed; No acute distress Nutritional Appearance: well nourished Orientation/consciousness: patient oriented x3 HENMT Head: Yes normocephalic and Yes atraumatic Eyes General: appearance normal, both eyes and all related structures Pupils: Equal, round and reactive pupils present EOM: EOMs intact bilaterally Resp Effort & Inspection: normal respiratory effort Neuro General: patient oriented x3 and gait normal Cranial nerves: Yes Equal, round and reactive pupils present Psych Affect: normal affect Assessment and Plan Assessment & Plan (1) Hypertension: Code(s): I10 - Essential (primary) hypertension Plan: Blood?pressure?is?better?controlled?with?increase?in?lisinopril.??Goal?is?less?t alarcon?130/80 Continue?current?medication?regimen (2) Alcohol abuse, uncomplicated: Comment: Reinforced dangers of drinking alcohol. Code(s): F10.10 - Alcohol abuse, uncomplicated Plan: Still?drinking?up?to?10?beers?a?day Encouraged?him?to?work?on?weaning?this?down (3) Neuropathy of foot: Code(s): G57.90 - Unspecified mononeuropathy of unspecified lower limb Plan: Likely?secondary?to?significant?alcohol?intake Will?give?him?AB?complex?vitamin?and?B12 As?above,?encouraged?him?to?try?weaning?down?alcohol?intake (4) Elevated AST (SGOT): Code(s): R74.01 - Elevation of levels of liver transaminase levels Plan: AST?is?back?in?normal?range Will?follow (5) Borderline anemia: Code(s): D64.9 - Anemia, unspecified Plan: Borderline?anemia?at?prior?Check?now?in?normal?range Will?follow Medications: New vit B complex 100 combo no.2 ER (B-100 Complex ER) 1 tab PO DAILY 90 days 90 tabs 3RF mecobalamin (vitamin B12) 1,000 mcg PO DAILY 90 days 90 tabs 2RF Coding Level of Care Code Est Pt Level 4 (05135) Diagnoses Hypertension I10 Alcohol abuse, uncomplicated F10.10 Neuropathy of foot G57.90 Elevated AST (SGOT) R74.01 Borderline anemia D64.9
== END 2023-08-10 12:31 | disposition home or self-care (01) ==
LOC: HO.HMGFM 11:42
PROVIDERS: PCP Family Medicine; Visit Provider Family Medicine
DX: I10 Essential (primary) hypertension (principal); F10.10 Alcohol abuse, uncomplicated; G57.90 Unspecified mononeuropathy of unspecified lower limb; R74.01 Elevation of levels of liver transaminase levels; D64.9 Anemia, unspecified
CPT/HCPCS: 99214

== ENCOUNTER 2023-09-21 07:58 | Outpatient (REF) | payer MEDICARE, SELFPAY ==
--- NOTE | ~2023-09-21 | CT_ITS ---
EXAMINATION: CT LUNG SCREENING CLINICAL INFORMATION: Personal history of nicotine dependence. The patient has a 100 pack-year history of smoking, having quit 6 years ago. COMPARISON: CT chest 09/10/2021. X-ray chest 02/01/2021. TECHNIQUE: Multidetector volumetric CT imaging of the chest is performed on a Siemens SOMATOM Definition scanner without contrast using low dose technique. Additional 2D coronal and sagittal reformatted images and axial 3D maximum intensity projection (MIP) images are generated on the CT workstation. This CT examination was performed using dose optimization techniques as appropriate, variously including the following: *Automated exposure control *Adjustment of mA and/or kV according to patient size (this includes techniques or standardized protocols for targeted exams where dose is matched to indication/reason for exam; i.e. extremities or head) *Use of iterative reconstruction technique TOTAL EXAM DLP: 69 mGy-cm. CTDIvol: 1.88 mGy. FINDINGS: PULMONARY NODULES: There is some tiny pulmonary nodules seen, none larger than 3 mm, without significant change when compared to prior. What was called an 8 mm subpleural right lower lobe nodule previously, is improved. Again noted is a perifissural lymph node in the right middle lobe along the minor fissure measuring 5 mm (5:319 compare prior 5:292). Guillen images of all nodules have been saved. No new, increasing-sized or concerning nodules are seen. LUNGS: Lungs bilaterally symmetrically expanded. There is moderate emphysema and mild diffuse bronchial thickening, without bronchiectasis. No effusion or pneumothorax. Central airways patent. MEDIASTINUM: No mediastinal, hilar or axillary adenopathy or free fluid collection. CORONARY ARTERY CALCIFICATION: Minimal. THYROID GLAND: Unremarkable to the extent seen. CARDIOVASCULAR STRUCTURES: Aortic and heart size normal. No pericardial effusion. CHEST WALL/AXILLA: Unremarkable. UPPER ABDOMEN: Included portions of the solid organs in the upper abdomen unremarkable on noncontrast imaging aside from hepatic steatosis, new compared to prior. Partial visualization of the previously seen benign right renal cyst. No follow-up needed. OSSEOUS STRUCTURES: No suspicious focal findings. CT/CT lung screening IMPRESSION: 1. No evidence of pulmonary malignancy. 2. Moderate emphysema. 3. New hepatic steatosis. 4. Incidental findings (s category): No significant new incidental findings. ASSESSMENT: 1. Lung-RADS Category 2: Benign appearance or behavior of nodules. N/A RECOMMENDATION: Continued routine annual low-dose CT lung screening in 1 year is recommended. An order for CT CHEST LOW DOSE CANCER SCREENING ([id number]) can be placed.
== END 2023-09-21 07:59 | disposition home or self-care (01) ==
LOC: HO.CT 07:58
PROVIDERS: PCP Family Medicine; Visit Provider Internal Medicine Pulmonary Disease
DX: Z12.2 Encounter for screening for malignant neoplasm of respiratory organs (principal); Z87.891 Personal history of nicotine dependence
CPT/HCPCS: 71271

== ENCOUNTER 2023-10-31 09:18 | Outpatient (REF) | payer MEDICARE, SELFPAY ==
--- NOTE | ~2023-10-31 | XR_ITS ---
EXAMINATION: XR CHEST CLINICAL INFORMATION: Foreign body. Alimentary tract COMPARISON: Chest radiograph 02/01/2021 TECHNIQUE: 2 views of the chest were obtained. FINDINGS: The cardiomediastinal silhouette is normal. There are clear lungs without consolidation, pleural effusion or pneumothorax. No acute osseous abnormalities. No radiopaque foreign body visualized. XR/XR chest 2V IMPRESSION: No acute cardiopulmonary process. No radiopaque foreign body visualized.
== END 2023-10-31 09:19 | disposition home or self-care (01) ==
LOC: HO.XRAY 09:18
PROVIDERS: PCP Family Medicine; Visit Provider Family Medicine
DX: T18.9XXA Foreign body of alimentary tract, part unspecified, initial encounter (principal); T17.908A Unspecified foreign body in respiratory tract, part unspecified causing other injury, initial encounter
CPT/HCPCS: 71046

== ENCOUNTER 2023-11-24 08:43 | Outpatient (AMB) | payer MEDICARE, SELFPAY ==
--- NOTE | 2023-11-24 08:52 | A.OFFPC_ITS ---
Vital Signs 11/24/23 08:55 11/24/23 08:58 Height 6 ft 3 in Weight 195 lb BMI 24.4 BP 100/50 L 90/50 L Blood Pressure Location Rt brachial Lt brachial Position Sitting Sitting Respiration 12 Pulse 69 Pulse Source Pulse Oximeter Temp 97.7 F Temp Source Tympanic Pulse Oximetry (%) 96 Oxygen Delivery Method Room Air Intake Visit Reasons: f/u hypertension Intake Note: follow up for hyertention Allergies pollen extracts Allergy (Mild, Verified 11/24/23 08:52) Unknown Tobacco use date assessed: 11/24/23 Dental Screening Dental Screen Date: 05/18/23 HPI f/u hypertension HPI Details 73 y/o male presents to f/u hypertension . Blood pressure today 90/50. He is on lisinopril-HCTZ 20-25mg daily. Pt notes he has decreased EtOH intake a bit. HPI Comments History of Present Illness Details Documentation assistance for Geoffrey Nunn MD, was provided by Edilson Martins, Clinical Administrative Coordinator on 11/24/2023 at 9:15 AM EST. I, Dr. Nunn, have read, observed, and verified documentation. [facility] Medical History History of cardioversion Atrial fibrillation Environmental allergies Post-traumatic osteoarthritis, unspecified hand Chronic obstructive pulmonary disease, unspecified GERD (gastroesophageal reflux disease) Alcohol abuse, uncomplicated Borderline hypercholesterolemia Benign essential HTN Surgical History History of esophagogastroduodenoscopy (EGD) Hx of colonoscopy History of removal of cyst History of cataract surgery Family History Father No problems noted. Mother No problems noted. Sister Pancreatic cancer Social History Household Members: Spouse Housing: House Are you a primary reservoir caretaker to a significant other at home: No Do you presently have visiting nurse or other home services: No Alcohol intake: current Alcohol intake frequency: 0-2 drinks per day Alcohol type: hard liquor Patient Tobacco Use Status: Former Tobacco user Tobacco use type: Cigarette e-Cigarette/Vaping Use: Never Used Second Hand Smoke Exposure: No Substance Use Type: Marijuana service: No Current occupational status: retired Cognitive needs: No Hearing needs: No Vision needs: Yes (Reading glasses) Questionnaire Thrive Questionnaire Date Thrive assessed: 05/18/23 JACK-7 AMB Questionnaire JACK-7 Date JACK - 7 assessed: 05/18/23 Source: Developed by Drs. Nikko Mak, Haley Jamisno, Jesse Frederick and colleagues, with an educational emilia from [employer]. Review of Systems Const Denies chills, Denies fatigue, Denies fever(s), Denies headache(s) and Denies weakness ENT Denies dizziness and Denies headache(s) Card Denies chest pain, Denies lightheadedness, Denies dyspnea and Denies other (Palpitations) Resp Denies cough, Denies dyspnea, Denies wheezing and Denies other ( shortness of breath) Musc Denies numbness and Denies tingling Neuro Denies dizziness, Denies headache(s), Denies numbness, Denies tingling, Denies paresthesias and Denies weakness Psych Denies anxiety and Denies depression Endo Denies fatigue Aller/Immun Denies wheezing Physical exam (Primary Care) Vital Signs: Last Vital Signs Temp 97.7 F 11/24/23 08:55 Pulse 69 11/24/23 08:55 Resp 12 11/24/23 08:55 BP 90/50 L 11/24/23 08:58 Pulse Ox 96 11/24/23 08:55 Oxygen Delivery Method Room Air 11/24/23 08:55 BMI result Body Mass Index 24.4 Tobacco/Smoking Status: Tobacco use Status Tobacco use date assessed 11/24/23 11/24/23 09:01 Patient Tobacco Use Status Former Tobacco user 11/24/23 09:01 Tobacco use type Cigarette 11/24/23 09:01 e-Cigarette/Vaping Use Never Used 11/24/23 09:01 Thrive Assessment: Date of Thrive Assessment Date Thrive assessed 05/18/23 11/24/23 09:01 Const General: no acute distress and well developed Nutritional Appearance: well nourished Orientation/consciousness: patient oriented x3 HENMT Head: Yes normocephalic and Yes atraumatic Eyes General: appearance normal, both eyes and all related structures Pupils: Equal, round and reactive pupils present EOM: EOMs intact bilaterally Resp Effort & Inspection: normal respiratory effort Auscultation: clear to auscultation bilaterally Cardio Rate: regular rate Rhythm: abnormal rhythm and abnormal rhythm irregularly irregular Heart sounds: S1 normal heart sound present, S2 normal heart sound present, no gallops, no murmurs and no rubs Neuro General: patient oriented x3 and gait normal Cranial nerves: Yes Equal, round and reactive pupils present Psych Affect: normal affect Assessment and Plan Assessment & Plan (1) Benign essential HTN: Code(s): I10 - Essential (primary) hypertension Plan: Blood?pressure?is?too?low?today.??Goal?is?less?than?140/90 He?is?taking?lisinopril?hydrochlorothiazide?in?the?morning?and?an?additional?20? mg?of?lisinopril?in?the?evening. He?will?change?his?evening?lisinopril?dose?to?10?mg Hydrate?well Continue?weight (2) Alcohol abuse, uncomplicated: Code(s): F10.10 - Alcohol abuse, uncomplicated Plan: He?says?he?has?been?easing?up?on?alcohol?consumption Encouraged?this Had?started?him?on?B12?and?checking?labs?today Orders: Orders Comprehensive Met. Panel Today I10 - Essential (primary) hypertension Microalbumin, Random (w Creat) Today I10 - Essential (primary) hypertension Vitamin B12 and Folate Today E53.8 - Deficiency of other specified B group vitamins Medications: Changed From lisinopril 20 mg (2 x 10 mg) PO QPM 90 days 180 tabs 2RF for blood pressure I10 - Essential (primary) hypertension To lisinopril 10 mg PO QPM 90 days 90 tabs 2RF for blood pressure I10 - Essential (primary) hypertension Coding Level of Care Code Est Pt Level 3 (72333) Diagnoses Benign essential HTN I10 Alcohol abuse, uncomplicated F10.10
[2023-11-24 08:55] VITALS: BP 100/50; PULSE 69; RESP 12; TEMP 36.5; O2SAT 96; BMI 24.4
[2023-11-24 08:58] VITALS: BP 90/50
== END 2023-11-24 09:24 | disposition home or self-care (01) ==
PROVIDERS: PCP Family Medicine; Visit Provider Family Medicine
DX: I10 Essential (primary) hypertension (principal); F10.10 Alcohol abuse, uncomplicated
CPT/HCPCS: 99213

== ENCOUNTER 2024-01-13 08:20 | Outpatient (REF) | payer MEDICARE, SELFPAY ==
[2024-01-13 11:06] LABS: MANUAL DIFF FLAG NO
[2024-01-13 11:19] LABS: Appearance Urine Clear; Color Urine Dark Yellow; Glucose Urine UA Negative (Negative); Leukocyte Esterase Urine Negative (Negative); Nitrite Urine Negative (Negative); PH 7.5 (5.0-9.0); Specific Gravity - Urine 1.015 (1.005-1.025); Urine Blood Negative (Negative); Urine Ketones Negative (Negative); Urine Protein Trace mg/dL (Neg-Trace)
[2024-01-13 11:25] LABS: Basophils Absolute Auto 0.1 X10*3/uL (0.0-0.2); Basophils Percent Auto 0.7 % (0-2); Eosinophils Absolute Auto 0.2 X10*3/uL (0.0-0.4); Eosinophils Percent Auto 2.2 % (0-4); Hematocrit 39.9 % (42.0-52.0); Hemoglobin 14.4 g/dl (14.0-18.0); Imm Gran Abs Auto 0.07 X10*3/uL (0.00-0.03); Imm Gran Pct Auto 0.8 % (0.0-0.4); Lymphocytes Absolute Auto 0.8 X10*3/uL (1.2-4.9); Lymphocytes Percent Auto 9.2 % (20-40); Mean Corpuscular HGB Conc 36.1 g/dl (31.0-36.0); Mean Corpuscular Hemoglobin 34.4 pg (27.0-33.0); Mean Corpuscular Volume 95.2 fL (80.0-98.0); Mean Platelet Volume 8.8 fL (9.4-12.4); Monocytes Absolute Auto 0.8 X10*3/uL (0.1-1.2); Monocytes Percent Auto 8.7 % (2-11); Neutrophils Absolute Auto 7.1 x10*3/uL (2.0-8.3); Neutrophils Percent Auto 78.4 % (45-73); Platelet Count 342 X10*3/uL (160-400); Red Blood Count 4.19 X10*6/uL (4.60-5.80); Red Cell Distribution Width 12.9 % (11.0-16.0); White Blood Count 9.1 X10*3/uL (4.8-10.8)
[2024-01-13 11:30] LABS: Hemoglobin 14.4 g/dl (14.0-18.0); Mean Corpuscular Hemoglobin 34.2 pg (27.0-33.0); Mean Platelet Volume 8.8 fL (9.4-12.4); Platelet Count 336 X10*3/uL (160-400); Red Blood Count 4.21 X10*6/uL (4.60-5.80); Red Cell Distribution Width 12.8 % (11.0-16.0)
[2024-01-13 11:56] LABS: Alanine Aminotransferase 29 U/L (0-40); Albumin Level 4.1 g/dL (3.5-5.0); Alkaline Phosphatase 102 U/L (39-117); Anion Gap 17 (12-20); Aspartate Amino Transferase 32 U/L (5-37); Blood Urea Nitrogen 8 mg/dL (9-16); Calcium 9.2 mg/dL (8.4-10.2); Carbon Dioxide 28 mmol/L (22-29); Chloride 93 mmol/L (96-108); Estimated Glomerular Filt Rate > 60; Glucose Random 113 mg/dL (60-115); Potassium 3.8 mmol/L (3.3-5.1); Sodium 134 mmol/L (135-145); Total Protein 6.7 g/dL (6.5-8.0)
[2024-01-13 11:57] LABS: Creatinine Urine 91.47 mg/dL; Microalbum/Creatinine Ratio Ur 69.9 ug/mg cr (<30)
[2024-01-13 12:05] LABS: Alanine Aminotransferase 28 U/L (0-40); Albumin Level 4.1 g/dL (3.5-5.0); Alkaline Phosphatase 105 U/L (39-117); Anion Gap 14 (12-20); Aspartate Amino Transferase 32 U/L (5-37); Blood Urea Nitrogen 7 mg/dL (9-16); Calcium 9.4 mg/dL (8.4-10.2); Carbon Dioxide 30 mmol/L (22-29); Chloride 94 mmol/L (96-108); Cholesterol 141 mg/dL (<200); Estimated Glomerular Filt Rate > 60; Glucose Random 115 mg/dL (60-115); HDL Cholesterol 60 mg/dL (>40); LDL Cholesterol Calculated 68 mg/dL (<100); Potassium 3.6 mmol/L (3.3-5.1); Sodium 134 mmol/L (135-145); Triglycerides 69 mg/dL (<150)
[2024-01-13 12:29] LABS: Folate 9.2 ng/mL (> or = 4.0); Vitamin B12 581 pg/mL (200-900)
[2024-01-16 01:43] LABS: TS Negative Control Passed; TS Panel A 3; TS Panel B 0; TS Positive Control Passed; TSpotTB Negative (Negative)
== END 2024-01-13 08:21 | disposition home or self-care (01) ==
LOC: HO.WFDLDS 08:20
PROVIDERS: Dermatology; Referring Provider Internal Medicine Cardiovascular Disease; Visit Provider Family Medicine
DX: Z00.00 Encounter for general adult medical examination without abnormal findings (principal); L20.89 Other atopic dermatitis; E53.8 Deficiency of other specified B group vitamins; I10 Essential (primary) hypertension; I48.11 Longstanding persistent atrial fibrillation
CPT/HCPCS: 36415; 80053; 80061; 81003; 82043; 82570; 82607; 82746; 85025; 85027; 86481

== ENCOUNTER 2024-02-03 08:36 | Outpatient (AMB) | payer MEDICARE, SELFPAY ==
--- NOTE | 2024-02-03 08:51 | MHC.PC.OV ---
Vital Signs 02/03/24 08:53 Height 6 ft 3 in Weight 203 lb 6 oz BMI 25.4 BP 125/60 Blood Pressure Location Rt brachial Position Sitting Respiration 14 Pulse 66 Pulse Source Pulse Oximeter Temp 97.5 F Temp Source Temporal Artery Scan Pulse Oximetry (%) 96 Oxygen Delivery Method Room Air Intake Visit Reasons: f/u hypertension Intake Note: f/u for HTN Allergies pollen extracts Allergy (Mild, Verified 02/03/24 08:52) Unknown Tobacco use date assessed: 11/24/23 Dental Screening Dental Screen Date: 05/18/23 HPI f/u hypertension HPI Details 73 y/o male presents to f/u hypertension, HLD. Blood pressure today 125/60, 66p. He is on diltiazem, lisinopril-hydrochlorothiazide 20-25mg daily and lisinopril 10mg in the evening. Labs drawn 01/13/24. Reviewed labs with pt. Borderline anemia. Triglycerides 69. TC 141. LDL 68. HDL 60. Sodium 134 mmol/L. He notes he continues to drink EtOH. Pt notes he has a FHx of diabetes. A1c today 02/03/24 is 5.1%. HPI Comments History of Present Illness Details Documentation assistance for Geoffrey Nunn MD, was provided by Edilson Martins, [employer] M[employer] Machine Operator on 02/03/2024 at 9:32 AM CLARIBEL. I, Dr. Nunn, have read, observed, and verified documentation. [facility] Medical History History of cardioversion Atrial fibrillation Environmental allergies Post-traumatic osteoarthritis, unspecified hand Chronic obstructive pulmonary disease, unspecified GERD (gastroesophageal reflux disease) Alcohol abuse, uncomplicated Borderline hypercholesterolemia Benign essential HTN Surgical History History of esophagogastroduodenoscopy (EGD) Hx of colonoscopy History of removal of cyst History of cataract surgery Family History Father No problems noted. Mother No problems noted. Sister Pancreatic cancer Social History Household Members: Spouse Housing: House Are you a primary home care coordinator to a significant other at home: No Do you presently have visiting nurse or other home services: No Alcohol intake: current Alcohol intake frequency: 0-2 drinks per day Alcohol type: hard liquor Patient Tobacco Use Status: Former Tobacco user Tobacco use type: Cigarette e-Cigarette/Vaping Use: Never Used Second Hand Smoke Exposure: No Substance Use Type: Marijuana service: No Current occupational status: retired Cognitive needs: No Hearing needs: No Vision needs: Yes (Reading glasses) Questionnaire Thrive Questionnaire Date Thrive assessed: 05/18/23 JACK-7 AMB Questionnaire JACK-7 Date JACK - 7 assessed: 05/18/23 Source: Developed by Drs. Nikko Mak, Haley Jamison, Jesse Frederick and colleagues, with an educational emilia from [employer]. Review of Systems Const Denies chills, Denies fatigue, Denies fever(s), Denies headache(s) and Denies weakness ENT Denies dizziness and Denies headache(s) Card Denies chest pain, Denies lightheadedness, Denies dyspnea and Denies other (Palpitations) Resp Denies cough, Denies dyspnea, Denies wheezing and Denies other ( shortness of breath) Musc Denies numbness and Denies tingling Neuro Denies dizziness, Denies headache(s), Denies numbness, Denies tingling, Denies paresthesias and Denies weakness Psych Denies anxiety and Denies depression Endo Denies fatigue Aller/Immun Denies wheezing Physical exam (Primary Care) Vital Signs: Last Vital Signs Temp 97.5 F 02/03/24 08:53 Pulse 66 02/03/24 08:53 Resp 14 02/03/24 08:53 BP 125/60 02/03/24 08:53 Pulse Ox 96 02/03/24 08:53 Oxygen Delivery Method Room Air 02/03/24 08:53 BMI result Body Mass Index 25.4 Tobacco/Smoking Status: Tobacco use Status Tobacco use date assessed 11/24/23 02/03/24 08:55 Patient Tobacco Use Status Former Tobacco user 02/03/24 08:55 Tobacco use type Cigarette 02/03/24 08:55 e-Cigarette/Vaping Use Never Used 02/03/24 08:55 Thrive Assessment: Date of Thrive Assessment Date Thrive assessed 05/18/23 02/03/24 08:55 Const General: no acute distress and well developed Nutritional Appearance: well nourished Orientation/consciousness: patient oriented x3 HENMT Head: Yes normocephalic and Yes atraumatic Eyes General: appearance normal, both eyes and all related structures Pupils: Equal, round and reactive pupils present EOM: EOMs intact bilaterally Resp Effort & Inspection: normal respiratory effort Auscultation: clear to auscultation bilaterally Cardio Rate: regular rate Rhythm: regular rhythm Heart sounds: S1 normal heart sound present, S2 normal heart sound present, no gallops, no murmurs and no rubs Neuro General: patient oriented x3 and gait normal Cranial nerves: Yes Equal, round and reactive pupils present Psych Affect: normal affect Coding Level of Care Code Est Pt Level 4 (63523) Diagnoses Hypertension I10 Borderline hypercholesterolemia E78.00 Family history of diabetes mellitus Z83.3 Borderline anemia D64.9 Alcohol abuse, uncomplicated F10.10 Assessment & Plan Assessment & Plan (1) Hypertension: Code(s): I10 - Essential (primary) hypertension Category: Medical Plan: Blood?pressure?is?controlled.??Goal?is?less?than?140/90 Continue?current?medications (2) Borderline hypercholesterolemia: Comment: Continue statins at same dosage. Code(s): E78.00 - Pure hypercholesterolemia, unspecified Category: Medical Plan: Patient?is?on?atorvastatin?and?lipid?panel?all?within?normal?range Continue?current?medication (3) Family history of diabetes mellitus: Code(s): Z83.3 - Family history of diabetes mellitus Category: Medical Plan: Patient?has?had?mildly?elevated?fasting?blood?sugar?in?the?past A1c?5.1%?is?within?normal?range We?can?continue?to?monitor I?encouraged?a?diet?lower?in?sugars?and?starches?and?decreased?alcohol (4) Borderline anemia: Code(s): D64.9 - Anemia, unspecified Category: Medical Plan: Very?mild/borderline?anemia Likely?secondary?to?marrow?suppression?from?alcohol?use Encouraged?decreased?alcohol?use Will?monitor?periodically (5) Alcohol abuse, uncomplicated: Code(s): F10.10 - Alcohol abuse, uncomplicated Category: Medical Plan: As?above,?encouraged?decreased?alcohol?use
[2024-02-03 08:53] VITALS: BP 125/60; PULSE 66; RESP 14; TEMP 36.4; O2SAT 96; BMI 25.4
== END 2024-02-03 09:49 | disposition home or self-care (01) ==
PROVIDERS: PCP Family Medicine; Visit Provider Family Medicine
DX: I10 Essential (primary) hypertension (principal); E78.00 Pure hypercholesterolemia, unspecified; Z83.3 Family history of diabetes mellitus; D64.9 Anemia, unspecified; F10.10 Alcohol abuse, uncomplicated

== ENCOUNTER → 2024-02-03 08:36 | Outpatient (BNVA) | payer MEDICARE, SELFPAY | PROVIDERS: PCP Family Medicine; Visit Provider Family Medicine | DX: Z13.1 Encounter for screening for diabetes mellitus (principal); I10 Essential (primary) hypertension; E78.00 Pure hypercholesterolemia, unspecified; D64.9 Anemia, unspecified; F10.10 Alcohol abuse, uncomplicated; Z83.3 Family history of diabetes mellitus | CPT/HCPCS: 83036; 99212 ==

== ENCOUNTER 2024-02-04 10:13 | Outpatient (AMB) | payer MEDICARE, SELFPAY ==
[2024-02-04 10:14] VITALS: BP 122/72; PULSE 82; O2SAT 97; BMI 25.2
--- NOTE | 2024-02-04 10:14 | MHC.OFFVIS ---
Vital Signs 02/04/24 10:14 Height 6 ft 3 in Weight 202 lb BMI 25.2 BP 122/72 Blood Pressure Location Lt brachial Position Sitting Pulse 82 Pulse Source Doppler Pulse Oximetry (%) 97 Oxygen Delivery Method Room Air Intake Visit Reasons: Shortness of breath Allergies pollen extracts Allergy (Mild, Verified 02/03/24 08:52) Unknown HPI HPI Shortness of breath: Details: 73-year-old gentleman, former greater than 50 pack-year smoker, quit 05/2018, followed for moderate asthma/COPD overlap syndrome and environmental allergies.? His symptoms have been well controlled on Anoro, Arnuity, duo nebs, and albuterol MDI. He denies any recent exacerbations. [facility] Medical History History of cardioversion Atrial fibrillation Environmental allergies Post-traumatic osteoarthritis, unspecified hand Chronic obstructive pulmonary disease, unspecified GERD (gastroesophageal reflux disease) Alcohol abuse, uncomplicated Borderline hypercholesterolemia Benign essential HTN Surgical History History of esophagogastroduodenoscopy (EGD) Hx of colonoscopy History of removal of cyst History of cataract surgery Family History Father No problems noted. Mother No problems noted. Sister Pancreatic cancer Social History Household Members: Spouse Housing: House Are you a primary ocular care technician to a significant other at home: No Do you presently have visiting nurse or other home services: No Alcohol intake: current Alcohol intake frequency: 0-2 drinks per day Alcohol type: hard liquor Patient Tobacco Use Status: Former Tobacco user Tobacco use type: Cigarette e-Cigarette/Vaping Use: Never Used Second Hand Smoke Exposure: No Substance Use Type: Marijuana service: No Current occupational status: retired Cognitive needs: No Hearing needs: No Vision needs: Yes (Reading glasses) Review of Systems Const Denies daytime sleepiness, Denies excessive sweating, Denies fatigue, Denies fever(s), Denies lethargy, Denies malaise, Denies night sweats, Denies snoring and Denies weight loss Eyes Denies blurry vision and Denies itchy eyes ENT Denies nasal congestion, Denies post nasal drip, Denies sinus pain, Denies sinus pressure and Denies other ( Thrush) Card Denies chest pain, Denies pedal edema, Denies dyspnea, Denies orthopnea and Denies paroxysmal nocturnal dyspnea Resp Denies cough, Denies hemoptysis, Denies excessive phlegm production, Denies dyspnea, Denies snoring and Denies wheezing GI Denies abdominal pain and Denies heartburn Musc Denies myalgias, Denies arthralgias and Denies joint swelling Skin/Breast Denies rash Neuro Denies memory loss and Denies seizure-like activity Psych Denies abnormal sleep pattern, Denies anxiety and Denies memory loss Endo Denies excessive sweating, Denies fatigue and Denies heat intolerance Dave/Lymph Denies easy bruising Aller/Immun Denies itchy eyes, Denies seasonal rhinorrhea and Denies wheezing Physical Exam Vital Signs: Last Vital Signs Pulse 82 02/04/24 10:14 BP 122/72 02/04/24 10:14 Pulse Ox 97 02/04/24 10:14 Oxygen Delivery Method Room Air 02/04/24 10:14 BMI result Body Mass Index 25.2 Const General: no acute distress and alert Nutritional Appearance: not obese Orientation/consciousness: Other orientation findings ( oriented) HEENT Head: Yes atraumatic Eyes General: appearance normal, both eyes and all related structures Sclerae: sclerae normal EOM: EOMs intact bilaterally Neck Neck: Yes supple Lymphatic: no lymphadenopathy noted Resp Effort & Inspection: normal respiratory effort and no use of accessory muscles Auscultation: clear to auscultation bilaterally Cardio Rate: regular rate Rhythm: regular rhythm Heart sounds: no gallops, no murmurs and no rubs Skin General skin exam: other ( warm) Extrem General: No clubbing, No cyanosis and No edema Assessment & Plan Assessment & Plan (1) Asthma-COPD overlap syndrome: Code(s): J44.9 - Chronic obstructive pulmonary disease, unspecified Category: Medical Plan: Well controlled on current regimen of Arnuity, Anoro, duo nebs, and albuterol MDI. Continue current regimen. (2) Personal history of nicotine dependence: Code(s): Z87.891 - Personal history of nicotine dependence Category: Medical Plan: Results of lung cancer screening CT chest from September of 2023 reviewed, no worrisome nodules. Continue with yearly screening, next in September of 2024, ordered. Orders: Orders CT lung screening 10/04/24 Z87.891 - Personal history of nicotine dependence Medications: Refilled umeclidinium-vilanterol 62.5-25 mcg/actuation (Anoro Ellipta) 1 inh inhalation DAILY 30 days 1 ea 6RF Coding Level of Care Code Est Pt Level 4 (78663) Diagnoses Asthma-COPD overlap syndrome J44.9 Personal history of nicotine dependence Z87.891
== END 2024-02-04 10:25 | disposition home or self-care (01) ==
PROVIDERS: PCP Family Medicine; Visit Provider Internal Medicine Pulmonary Disease
DX: J44.9 Chronic obstructive pulmonary disease, unspecified (principal); Z87.891 Personal history of nicotine dependence
CPT/HCPCS: 99214

== ENCOUNTER → 2024-02-04 10:13 | Outpatient (BNVA) | payer MEDICARE, SELFPAY | PROVIDERS: PCP Family Medicine; Visit Provider Internal Medicine Pulmonary Disease | DX: J44.9 Chronic obstructive pulmonary disease, unspecified (principal); Z87.891 Personal history of nicotine dependence | CPT/HCPCS: 99212 ==

== ENCOUNTER → 2024-03-01 08:51 | Outpatient (REF) | payer MEDICARE, SELFPAY ==
--- NOTE | 2024-03-01 08:54 | CA_ITS ---
Transthoracic Echocardiogram Patient (Last, First, Middle): Sebastian Knapp, Gender: Male Date of : 1950 Age: 74 Procedure Date: 03/01/2024 Procedure Type: Transthoracic Echocardiogram Location: OP Height: 190.5 cm Weight: 90.72 kg BSA: 2.19 m2 Heart Rate: 90 bpm BP: 124 / 70 mmHg Master Police Detective: LASR Referring MD: Red Miles MD Symptoms: I48.11 - Longstanding persistent atrial fibrillation Study Quality: Adequate ECG Rhythm: Atrial Fibrillation Conclusions: - The left ventricular systolic function is normal. The calculated ejection fraction is 60% by biplane method. - Moderate biatrial enlargement. - No obvious valvular pathology seen on this study. Findings Left Ventricle Normal left ventricular cavity size. There is normal left ventricular wall thickness. The left ventricular systolic function is normal. The calculated ejection fraction is 60% by biplane method. There is no evidence of regional wall motion abnormalities. Diastolic function is indeterminate on the basis of available data. Right Ventricle Mildly increased right ventricular cavity size. There is normal right ventricular systolic function. Atria Moderate biatrial enlargement. Aortic Valve There is a normal trileaflet aortic valve. There is no aortic valve stenosis. There is no aortic valve regurgitation. Mitral Valve The mitral valve appears normal. There is no mitral valve regurgitation. There is no mitral valve stenosis. Pulmonic Valve The pulmonic valve is likely normal. Tricuspid Valve Normal tricuspid valve structure. There is mild tricuspid valve regurgitation. There is no evidence of pulmonary hypertension. Great Vessels The asc aorta is normal in size. Venous The inferior vena cava was not well visualized. The inferior vena cava is normal in size and collapses greater than 50% with inspiration. Pericardium/Pleural There is no evidence of pericardial effusion. Prior Study Comparison No significant change compared to prior study dated: 04/22/2021. Recommendations, Care & Conclusions No obvious valvular pathology seen on this study. Measurements 2D Linear Measurements IVSd: 0.54 0.6-0.9/0.6-1.0 cm LVIDd: 5.38 3.9-5.3/4.2-5.9 cm LVIDd Index: 2.46 2.4-3.2/2.2-3.1 cm/m2 LVIDs: 3.67 2.0-3.6 cm LVPWd: 0.88 0.7-1.1 cm LA Diam: 4.50 2.7-3.8/3.0-4.0 cm LAIDs Index: 2.05 1.5-2.3 cm/m2 LV Mass: 164.92 67-162/88-224 g LV Mass Index: 75.30 43-95/49-115 g/m2 LVOT Diam: 2.40 3.0+(-)1.3 cm 2D Systolic Function EF 4C: 59.70 >55% EF 2C: 62.00 >55% EF BiP: 59.70 >55% Mitral Valve MV Pk E: 0.84 Aortic Valve AoV Pk Tho: 1.34 AoV Pk Grad: 7.00 YANELI: 3.20 LVOT LVOT Pk Tho: 0.95 LVOT Mn Tho: 0.65 LVOT VTI: 0.16 LVOT Pk Grad: 4.00 LVOT Mn Grad: 2.00 LVOT Diam: 2.40 LVOT Area: 4.52 Diastolic Function MV Pk E: 0.84 Right Ventricle TAPSE (mm): 21.40 TVS' Tho: 15.70 Tricuspid Valve TR Pk Tho: 2.40 TR Pk Grad: 23.00 RA Press: 3.00 RVSP: 26.00 Great Vessels Aorta Sinus of Valsalva: 3.10 2.0-3.5 cm Ao Asc: 3.50 2.1-3.4 cm Pulmonary Valve PV Pk Tho: 1.07 Peak PV Grad: 5.00 Updated in Other Vendor System with Status of Final Joel Benitez MD electronically signed on 03/02/2024 8:25:30 AM with status of Final
== END ==
LOC: HO.CARD 08:51
PROVIDERS: PCP Family Medicine; Visit Provider Internal Medicine Cardiovascular Disease
DX: I48.11 Longstanding persistent atrial fibrillation (principal)
CPT/HCPCS: 93306

== ENCOUNTER → 2024-03-01 08:54 | Outpatient (BNV) | payer MEDICARE, SELFPAY | PROVIDERS: PCP Family Medicine; Visit Provider Internal Medicine | DX: I51.7 Cardiomegaly (principal); I36.1 Nonrheumatic tricuspid (valve) insufficiency | CPT/HCPCS: 93306 ==

== ENCOUNTER 2024-03-22 08:45 | Outpatient (AMB) | payer MEDICARE, SELFPAY ==
[2024-03-22 08:46] VITALS: BP 120/72; PULSE 71; BMI 24.8
--- NOTE | 2024-03-22 08:46 | A.OFFVIS_ITS ---
Vital Signs 03/22/24 08:46 Height 6 ft 3 in Weight 198 lb 6.656 oz BMI 24.8 BP 120/72 Blood Pressure Location Lt brachial Position Sitting Pulse 71 Intake Visit Reasons: 1 yr s/p echo Intake Note: 1 year follow-up with ekg after echo feeling good Button Spindler Required: No Allergies pollen extracts Allergy (Mild, Verified 02/03/24 08:52) Unknown Medication List - Last Reconciled 03/22/24 by Red Miles MD albuterol sulfate 90 mcg/actuation 2 puffs PO Q4-6H PRN apixaban (Eliquis) 5 mg PO BID 90 days atorvastatin 20 mg PO DAILY blood pressure test kit-large As directed desonide 0.05% 1 appl topical TID PRN diltiazem HCl CD 300 mg PO QPM diphenhydramine HCl 25 mg PO BEDTIME PRN 10 days fluticasone furoate 200 mcg/actuation (Arnuity Ellipta) 1 inh inhalation DAILY 30 days hydrocortisone 1% 1 appl topical BID PRN ipratropium-albuterol 0.5 mg-3 mg(2.5 mg base)/3 mL 3 mL inhalation Q6H PRN 30 days latanoprost 0.005% 1 drp ophthalmic-Right BEDTIME lisinopril 10 mg PO QPM 90 days lisinopril-hydrochlorothiazide 20-25 mg 1 tab PO DAILY 90 days mecobalamin (vitamin B12) 1,000 mcg PO DAILY 90 days methylcellulose (laxative) (Citrucel) 500 mg PO BID omeprazole 20 mg PO BID umeclidinium-vilanterol 62.5-25 mcg/actuation (Anoro Ellipta) 1 inh inhalation DAILY 30 days vit B complex 100 combo no.2 ER (B-100 Complex ER) 1 tab PO DAILY 90 days HPI Comments Details: Sebastian comes for follow-up of his atrial fibrillation hypertension. He said he has been doing very well from cardiac perspective. Remains active in his day-to-day life. Denies any worsening symptoms. No interference with his quality of life. Denies any symptoms of shortness of breath, orthopnea, PND, leg edema. No prolonged palpitation irregular heartbeat. Denies any exertional chest pain. No lightheadedness, syncope. No bleeding issues or neurologic events. Fortunately he said he does drink alcohol on a daily basis but does not get drunk. [facility] Medical History (Updated 03/22/24 @ 09:12 by Red Miles MD) Chronic atrial fibrillation History of cardioversion Environmental allergies Post-traumatic osteoarthritis, unspecified hand Chronic obstructive pulmonary disease, unspecified GERD (gastroesophageal reflux disease) Alcohol abuse, uncomplicated Borderline hypercholesterolemia Benign essential HTN Surgical History History of esophagogastroduodenoscopy (EGD) Hx of colonoscopy History of removal of cyst History of cataract surgery Family History Father No problems noted. Mother No problems noted. Sister Pancreatic cancer Social History Household Members: Spouse Housing: House Are you a primary care asst to a significant other at home: No Do you presently have visiting nurse or other home services: No Alcohol intake: current Alcohol intake frequency: 0-2 drinks per day Alcohol type: hard liquor Patient Tobacco Use Status: Former Tobacco user Tobacco use type: Cigarette e-Cigarette/Vaping Use: Never Used Second Hand Smoke Exposure: No Substance Use Type: Marijuana service: No Current occupational status: retired Cognitive needs: No Hearing needs: No Vision needs: Yes (Reading glasses) Review of Systems Const Denies chills, Denies fatigue, Denies fever(s), Denies frequent falls, Denies we akness, Denies weight gain and Denies weight loss ENT Denies dizziness Card Denies chest pain, Denies leg edema, Denies lightheadedness, Denies palpit ations, Denies dyspnea, Denies dyspnea on exertion, Denies orthopnea and Denies other (loss of consciousness) Resp Denies cough, Denies dyspnea and Denies dyspnea on exertion GI Denies hematochezia and Denies change in stool character Musc Denies abnormal gait, Denies muscle weakness, Denies numbness, Denies radiating pain into limb and Denies tingling Neuro Denies Abnormal speech present, Denies abnormal gait, Denies dizziness, Denies frequent falls, Denies numbness, Denies tingling and Denies weakness Endo Denies fatigue and Denies palpitations Physical Exam Vital Signs: Last Vital Signs Pulse 71 03/22/24 08:46 BP 120/72 03/22/24 08:46 BMI result Body Mass Index 24.8 Const General: cooperative, comfortable, no acute distress, alert and awake Nutritional Appearance: overweight Orientation/consciousness: patient oriented x3 Limitations: no limitations HEENT Head: Yes normocephalic and Yes atraumatic Neck Neck: Yes trachea midline and Yes supple Chest Chest palpation & inspection: normal inspection of the chest Resp Effort & Inspection: normal respiratory effort Auscultation: no crackles, no rales, no rhonchi, no wheezes and diminished lung sounds Cardio Jugular venous distension: no JVD Palpation: normal PMI Rate: tachycardic Rhythm: abnormal rhythm irregularly irregular Heart sounds: S1 normal heart sound present, S2 normal heart sound present, no click, no gallops, no murmurs and no rubs GI Auscultation: normal bowel sounds Skin General skin exam: no rashes or lesions noted Neuro General: patient oriented x3 and no focal motor deficits Speech: No Abnormal speech present Extrem General: Yes no clubbing, cyanosis or edema Psych Appearance: grossly normal Office Procedures EKG Details: EKG shows atrial fibrillation with PVCs [id number], Complete Assessment & Plan Assessment & Plan (1) Chronic atrial fibrillation: Code(s): I48.20 - Chronic atrial fibrillation, unspecified Category: Medical Plan: Chronic rate control atrial fibrillation this elderly gentleman with significant structural changes in both atrial. Has failed rhythm control approach. Will continue pursue rate control. Currently not having any signs or symptoms of heart failure cardiac decompensation. Discussed with him about risk of using alcohol in setting of Eliquis. He said he does not have issue with alcohol at this point time. Continue full oral anticoagulation Eliquis with high risk of bleeding. Continue aggressive blood pressure control. Continue current rate control strategy. There is high risk of development of heart failure in patients with chronic atrial fibrillation this was discussed with him. Signs and symptoms were discussed. (2) Benign essential HTN: Code(s): I10 - Essential (primary) hypertension Category: Medical Plan: Hypertension which is currently well optimized advised to monitor blood pressure at home maintain a log. Goal blood pressure less than 130/84. Decreasing alcohol use was discussed. Continue current therapy. Low-salt diet was discussed. Encouraged to maintain activity level as tolerated. Will follow up in the clinic in 1 year's time, sooner p.r.n.. Thank you for allowing me to partake in his Coding Level of Care Code Est Pt Level 4 (15485) Complex EM visit Add On G2211 Diagnoses Chronic atrial fibrillation I48.20 Benign essential HTN I10 CPT Codes EKG - CPT: [id number], Complete ([id number])
== END 2024-03-22 09:49 | disposition home or self-care (01) ==
PROVIDERS: PCP Family Medicine; Visit Provider Internal Medicine Cardiovascular Disease
DX: I48.20 Chronic atrial fibrillation, unspecified (principal); I10 Essential (primary) hypertension
CPT/HCPCS: 93010; 99214; G2211

== ENCOUNTER → 2024-03-22 08:45 | Outpatient (BNVA) | payer MEDICARE, SELFPAY | PROVIDERS: PCP Family Medicine; Visit Provider Internal Medicine Cardiovascular Disease | DX: I48.20 Chronic atrial fibrillation, unspecified (principal); I10 Essential (primary) hypertension | CPT/HCPCS: 93005; 99212 ==

== ENCOUNTER → 2024-05-05 20:21 | Outpatient (BNV) | payer MEDICARE, SELFPAY | PROVIDERS: Emergency Provider Emergency Medicine; PCP Family Medicine; Visit Provider Radiology Diagnostic Radiology | DX: K52.9 Noninfective gastroenteritis and colitis, unspecified (principal); K80.20 Calculus of gallbladder without cholecystitis without obstruction; K62.89 Other specified diseases of anus and rectum; R41.82 Altered mental status, unspecified; E87.1 Hypo-osmolality and hyponatremia; R06.02 Shortness of breath; K63.89 Other specified diseases of intestine | CPT/HCPCS: 70450; 71045; 74178 ==

== ENCOUNTER 2024-05-05 23:44 | Outpatient (BNV) | payer MEDICARE, SELFPAY | END 2024-05-10 01:35 | PROVIDERS: Admitting Provider Student in an Organized Health Care Education/Training Program; Emergency Provider Emergency Medicine; PCP Family Medicine; Visit Provider Radiology Neuroradiology | DX: R91.8 Other nonspecific abnormal finding of lung field (principal); Z43.1 Encounter for attention to gastrostomy; R14.0 Abdominal distension (gaseous) | CPT/HCPCS: 71045; 74018 ==

== ENCOUNTER 2024-05-05 23:44 | Outpatient (BNV) | payer MEDICARE, SELFPAY | END 2024-05-11 05:05 | PROVIDERS: Admitting Provider Student in an Organized Health Care Education/Training Program; Emergency Provider Emergency Medicine; PCP Family Medicine; Visit Provider Radiology Diagnostic Radiology | DX: J90 Pleural effusion, not elsewhere classified (principal); Z43.1 Encounter for attention to gastrostomy; K56.609 Unspecified intestinal obstruction, unspecified as to partial versus complete obstruction | CPT/HCPCS: 71045; 74018 ==

== ENCOUNTER 2024-05-05 23:44 | Outpatient (BNV) | payer MEDICARE, SELFPAY | END 2024-05-12 03:57 | PROVIDERS: Admitting Provider Student in an Organized Health Care Education/Training Program; Emergency Provider Emergency Medicine; PCP Family Medicine; Visit Provider General Practice | DX: J90 Pleural effusion, not elsewhere classified (principal); R91.8 Other nonspecific abnormal finding of lung field | CPT/HCPCS: 71045 ==

== ENCOUNTER → 2024-05-05 23:44 | Outpatient (BNV) | payer MEDICARE, SELFPAY | PROVIDERS: Admitting Provider Student in an Organized Health Care Education/Training Program; Emergency Provider Emergency Medicine; PCP Family Medicine; Visit Provider Internal Medicine Gastroenterology | DX: K92.2 Gastrointestinal hemorrhage, unspecified (principal) | CPT/HCPCS: 99223; 99232 ==

== ENCOUNTER → 2024-05-05 23:44 | Outpatient (BNV) | payer MEDICARE, SELFPAY | PROVIDERS: Admitting Provider Student in an Organized Health Care Education/Training Program; Emergency Provider Emergency Medicine; PCP Family Medicine; Visit Provider Student in an Organized Health Care Education/Training Program | DX: K56.609 Unspecified intestinal obstruction, unspecified as to partial versus complete obstruction (principal) | CPT/HCPCS: 99223; 99232; 99233; 99499 ==

== ENCOUNTER → 2024-05-05 23:44 | Outpatient (BNV) | payer MEDICARE, SELFPAY | PROVIDERS: Admitting Provider Student in an Organized Health Care Education/Training Program; Emergency Provider Emergency Medicine; PCP Family Medicine; Visit Provider Surgery | DX: K59.81 Ogilvie syndrome (principal) | CPT/HCPCS: 45393 ==

== ENCOUNTER → 2024-05-05 23:44 | Outpatient (BNV) | payer MEDICARE, SELFPAY | PROVIDERS: Admitting Provider Student in an Organized Health Care Education/Training Program; Emergency Provider Emergency Medicine; PCP Family Medicine; Visit Provider Internal Medicine Cardiovascular Disease | DX: I48.20 Chronic atrial fibrillation, unspecified (principal) | CPT/HCPCS: 99222 ==

== ENCOUNTER → 2024-05-05 23:44 | Outpatient (BNV) | payer MEDICARE, SELFPAY | PROVIDERS: Admitting Provider Student in an Organized Health Care Education/Training Program; Emergency Provider Emergency Medicine; PCP Family Medicine; Visit Provider Nurse Practitioner Psychiatric/Mental Health | DX: F10.20 Alcohol dependence, uncomplicated (principal) | CPT/HCPCS: 99222 ==

== ENCOUNTER 2024-05-19 16:21 | Inpatient (IN) | payer OTHER, SELFPAY ==
--- NOTE | 2024-05-19 16:56 | P.HPHOSP_ITS ---
History of Present Illness Date of Service: 05/19/24 Chief Complaint: being admitted to [facility] hospice 74 yo M with multiple medical problems who was admitted under the medical services for treatment of his acute medical issues. His condition continued to deteriorate and ultimately he was changed to comfort care/hospice care. The patient is now becoming increasingly confused and with tachypnea with likely aspiration. He has been evaluated by the hospice team and will be transitioned to general inpatient hospice diminish his discomfort. Discharge summary from his medical admission: HPI From admission H&P: This is a 74-year-old male with pertinent history of alcohol use disorder, chronic AFib on anticoagulation, hypertension, gastroesophageal reflux disease, mixed hyperlipidemia, COPD not on home oxygen who presents to the emergency department for evaluation after a fall and blood in stools. As per patient's , he fell on the day of presentation after consuming more than ordinary amounts of alcohol. He denies loss of consciousness, chest pain or palpitations prior to the fall. Also has been having multiple episodes of bright red blood in stool that started on the day of presentation. States this has never happened before. Has associated lower abdominal discomfort. No nausea, vomiting, hematemesis. Last alcohol use was on the day of presentation. No history of alcohol withdrawal or alcohol withdrawal seizures. No fever, chills, palpitations, shortness of breath, changes in urinary habits In the emergency department, imaging with distal colitis, transverse colonic wall thickening ?malignancy. Patient was resuscitated with IV crystalloids and hospital medicine team consulted for admission. Hospital Course: Patient had a very prolonged hospitalization, for the full details P his full EMR records. In brief, hospital course by discharge diagnosis. Acute blood loss anemia due to gastrointestinal bleed Patient had multiple bloody bowel movements and was closely monitored in regards to his hemoglobin. He was evaluated by Gastroenterology and underwent an upper endoscopy which showed gastritis and esophagitis. The plan was for colonoscopy, however patient was unable to tolerate bowel prep. His hospital course in regards to this was complicated by colonic distension which required decompression by General surgery. Severe sepsis due to colitis Patient was noted to have leukocytosis/tachycardia/hypotension/TRAVIS. He was treated with IV ceftriaxone and Flagyl. Alcohol use disorder with alcohol withdrawal Was treated with IV thiamine and phenobarbital AFib with RVR Complicated by rapid rates and required IV Cardizem drip. Acute on chronic disastolic CHF due to fluid overload from IVF -- treat with iv laix Final discharge diagnosis: 1. Severe sepsis due to colitis 2. Acute blood loss anemia due to gastrointestinal bleed 3. Alcohol use disorder with alcohol withdrawal 4. AFib with RVR 6. Acute on chronic diastolic CHF 7. Acute kidney injury [facility] Medical History Chronic atrial fibrillation History of cardioversion Environmental allergies Post-traumatic osteoarthritis, unspecified hand Chronic obstructive pulmonary disease, unspecified GERD (gastroesophageal reflux disease) Alcohol abuse, uncomplicated Borderline hypercholesterolemia Benign essential HTN Family History Father No problems noted. Mother No problems noted. Sister Pancreatic cancer Surgical History History of esophagogastroduodenoscopy (EGD) Hx of colonoscopy History of removal of cyst History of cataract surgery Social History Household Members: Spouse Housing: House Are you a primary residential care officer to a significant other at home: No Do you presently have visiting nurse or other home services: No Alcohol intake: current Alcohol intake frequency: 0-2 drinks per day Alcohol type: hard liquor Comment: 1-1 sitter Patient Tobacco Use Status: Former Tobacco user Tobacco use type: Cigarette e-Cigarette/Vaping Use: Never Used Second Hand Smoke Exposure: No Substance Use Type: Marijuana Advance Directives: Yes Advance Directives on File: Yes Advance Directives Date on File: 05/05/24 service: No Current occupational status: retired Cognitive needs: No Hearing needs: No Vision needs: Yes (Reading glasses) Meds Allergies Allergy/AdvReac Type Severity Reaction Status Date / Time pollen extracts Allergy Mild Unknown Verified 05/05/24 22:50 Active Medications: Current Medications Atropine Sulfate (Atropine Sulfate 1 % Ophth Radhika 2 Ml Bottle) 2 drop SUBLINGUAL Q4H PRN PRN Reason: Secretions Morphine Sulfate (Morphine Sulfate 2 Mg/Ml Cartridge) 2 mg IVPUSH Q3H PRN PRN Reason: Pain, Severe (7-10)/ RR>/=24 Ondansetron HCl (Ondansetron Odt 4 Mg Tab.Rapdis) 4 mg TRANSLINGU Q8H PRN PRN Reason: Nausea and Vomiting Scopolamine (Scopolamine 1.5 Mg Patch.Td.3) 1.5 mg EAR-BEHIND Q72H [facility] Physical Exam Const: Other: Tachypnea into the 20s Awake and alert but confused Assessment and Plan (1) Hospice care: Status: Acute Plan 74-year-old male who has been transitioned to general inpatient hospice 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
--- NOTE | 2024-05-19 18:06 | PC.NURSE ---
Transfered to [facility] today ,
--- NOTE | 2024-05-19 18:07 | PHA.MEDREC ---
Pharmacy Consult ? Medication Reconciliation Pharmacy DID NOT COMPLETE medication reconciliation. PER DR. SCHNEIDER, HE STATES THERE IS NO NEED TO DO A MED REC, PT HAS PLANS FOR HOSPICE.
[2024-05-19] MEDS: Scopolamine 1.5 MG PATCH.TD.3 EAR-BEHIND (18:21)
[2024-05-20] MEDS: Morphine Sulfate 2 MG/ML CARTRIDGE IVPUSH ×3 (01:11→16:26)
[2024-05-20 01:41] VITALS: RESP 20
[2024-05-20] MEDS: LORazepam 2 MG/ML VIAL 0.5 MG IVPUSH ×3 (05:54→22:39)
--- NOTE | 2024-05-20 09:28 | MHC.CM.PN ---
PT ADMITTED TO [facility], CM SPOKE W/[facility]PIICE [facility] WHO SPOKE W/PT'S [facility]IL[facility] [phone] AND REPORTS PLAN WILL BE FOR PT TO REMAIN INPT OVER W/E AND TRANSITION HOME ON HOSPICE SATURDAY 04/22 W/FAMILY, VISITING [facility], HOSPICE WILL NEED TO DELIVER MEDICAL EQUIPMENT INCLUDING HOSPITAL BED PT HAS NO DME AT HOME AND BLS TRANSPORT.
--- NOTE | 2024-05-20 10:42 | PM.EVENT ---
Event Note Date of Service: 05/20/24 Event Note: Day Team Note S seen and examined awake and alert; pointing to his mouth (appears to have dry mouth) O awake alert NAD A/P 74-year-old male who has been transitioned to general inpatient hospice continue current care -- he appears to be comfortable ? transition to oral meds -- will see how he does today and consider PO meds Time Spent With Patient Time: Total time managing care of this patient today ____ minutes.
[2024-05-20 23:39] VITALS: RESP 20
[2024-05-21] VITALS (9 sets, daily range): RESP 18–38
[2024-05-21] MEDS: LORazepam 2 MG/ML VIAL 0.5 MG IVPUSH ×6 (02:01→21:48)
--- NOTE | 2024-05-21 08:16 | PC.RT ---
RT Note to clarify pt O2 set up. Pt is currently on humidification for dry mouth/airway. Pt does not have O2 requirements, however is on O2 due to no air flow meters on floors. Pt SATs 94% on RA.
--- NOTE | 2024-05-21 10:36 | PM.EVENT ---
Event Note Date of Service: 05/21/24 Event Note: Day Team Note S seen and examined more lethargic today; opens eyes to his name O lethargic, responds to verbal stimuli [id number] A/P 74-year-old male who has been transitioned to general inpatient hospice continue current care -- he appears to be comfortable; he's less alert today continue iv meds given mental status Time Spent With Patient Time: Total time managing care of this patient today ____ minutes.
[2024-05-21] MEDS: Morphine Sulfate 2 MG/ML CARTRIDGE IVPUSH ×5 (10:44→19:29)
[2024-05-21] MEDS: Acetaminophen Supp 650 MG SUPP.RECT PR (22:53)
[2024-05-22] VITALS (17 sets, daily range): RESP 14–34; TEMP 36.6–38.1
[2024-05-22] MEDS: Morphine Sulfate 2 MG/ML CARTRIDGE IVPUSH ×4 (00:07→09:05)
[2024-05-22] MEDS: LORazepam 2 MG/ML VIAL 0.5 MG IVPUSH ×6 (00:07→23:51)
[2024-05-22] MEDS: Acetaminophen Supp 650 MG SUPP.RECT PR ×2 (04:21→10:34)
[2024-05-22] MEDS: Morphine Sulfate 2 MG/ML CARTRIDGE 4 MG IVPUSH ×3 (10:31→13:27)
--- NOTE | 2024-05-22 10:36 | HO.PM.IMPN ---
Subjective Subjective Date of Service: 05/22/24 Review of Systems Review of Systems: Yes Unobtainable due to mental condition Physical Exam Vital Signs: Vital Signs: Last Vital Signs Resp 28 H 05/22/24 08:53 obstuded, tachypneic, accessory muscles Objective Data Active Medications Acetaminophen (Acetaminophen Supp 650 Mg Supp.Rect) 650 mg CO Q4H PRN PRN Reason: Fever >100.4 Last Admin: 05/22/24 04:21 Dose: 650 mg Documented By: JESSICA Atropine Sulfate (Atropine Sulfate 1 % Ophth Radhika 2 Ml Bottle) 2 drop SUBLINGUAL Q4H PRN PRN Reason: Secretions Lorazepam (Lorazepam 2 Mg/Ml Vial) 0.5 mg IVPUSH Q4H PRN PRN Reason: Restlessness Last Admin: 05/22/24 09:05 Dose: 0.5 mg Documented By: PRATIK Lorazepam (Lorazepam 2 Mg/Ml Vial) 0.5 mg IVPUSH Q6H [facility] Last Admin: 05/22/24 06:14 Dose: 0.5 mg Documented By: JESSICA Morphine Sulfate (Morphine Sulfate 2 Mg/Ml Cartridge) 2 mg IVPUSH Q3H PRN PRN Reason: Pain, Severe (7-10)/ RR>/=24 Last Admin: 05/22/24 09:05 Dose: 2 mg Documented By: PRATIK Morphine Sulfate (Morphine Sulfate 2 Mg/Ml Cartridge) 4 mg IVPUSH Q1H PRN; Protocol PRN Reason: pain, work of breathing Ondansetron HCl (Ondansetron Odt 4 Mg Tab.Rapdis) 4 mg TRANSLINGU Q8H PRN PRN Reason: Nausea and Vomiting Scopolamine (Scopolamine 1.5 Mg Patch.Td.3) 1.5 mg EAR-BEHIND Q72H [facility] Last Admin: 05/19/24 18:21 Dose: 1.5 mg Documented By: RONDA Assessment and Plan (1) Bowel obstruction: Status: Acute Plan 74-year-old male with pertinent history of alcohol use disorder, chronic AFib on anticoagulation, hypertension, gastroesophageal reflux disease, mixed hyperlipidemia, COPD not on home oxygen who presents to the emergency department for evaluation after a fall and blood in stools. 1.Acute LGI bleed with acute blood loss anemia/ileus/alcohol use disorder/worsening dementia. 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
[2024-05-22] MEDS: LORazepam 2 MG/ML VIAL IVPUSH (13:39)
[2024-05-22] MEDS: Scopolamine 1.5 MG PATCH.TD.3 EAR-BEHIND (15:19)
[2024-05-22] MEDS: HYDROmorphone HCl 2 MG/ML VIAL 1.5 MG IVPUSH ×2 (15:31→17:29)
--- NOTE | 2024-05-23 05:03 | PM.EVENT ---
Event Note Date of Service: 05/23/24 Event Note: I was contacted by nursing staff to evaluate the patient for cessation of breahting. Fixed dilated pupils, no pulse. pronounced at 04:16 am. Contacted his spouse and informed her. Time Spent With Patient Time: Total time managing care of this patient today ____ minutes.
--- NOTE | 2024-06-15 07:11 | P.DN_ITS ---
Discharge Sum: Prov Provider Primary care physician: Geoffrey Nunn MD Discharge Sum: Diag Contributing Factors (1) Bowel obstruction: Discharge Sum: Summary Date and Time Date of admission: 05/19/24 16:21 Date of : 05/23/24 Summary Details: from initial hpi: This is a 74-year-old male with pertinent history of alcohol use disorder, chronic AFib on anticoagulation, hypertension, gastroesophageal reflux disease, mixed hyperlipidemia, COPD not on home oxygen who presents to the emergency department for evaluation after a fall and blood in stools. As per patient's , he fell on the day of presentation after consuming more than ordinary amounts of alcohol. He denies loss of consciousness, chest pain or palpitations prior to the fall. Also has been having multiple episodes of bright red blood in stool that started on the day of presentation. States this has never happened before. Has associated lower abdominal discomfort. No nausea, vomiting, hematemesis. Last alcohol use was on the day of presentation. No his tory of alcohol withdrawal or alcohol withdrawal seizures. No fever, chills, palpitations, shortness of breath, changes in urinary habits In the emergency department, imaging with distal colitis, transverse colonic wall thickening ?malignancy. Patient was resuscitated with IV crystalloids and hospital medicine team consulted for admission. hospital course: Patient initially presented with fall and acute blood loss anemia to lower GI bleed complicated by ileus, alcohol use disorder, worsening dementia, AFib with rapid ventricular response, acute on chronic diastolic CHF. Due to poor progn osis was admitted to [facility] hospice and made comfort measures only. Was treated with as-needed morphine and patient on 05/23/2024. Additional Data Attending physician: Ari Palmer MD
== END 2024-05-23 05:32 | disposition expired | DRG 951 ==
PROVIDERS: Admitting Provider Family Medicine; PCP Family Medicine; Visit Provider Internal Medicine
DX: Z51.5 Encounter for palliative care (principal); A41.9 Sepsis, unspecified organism; R65.20 Severe sepsis without septic shock; I50.33 Acute on chronic diastolic (congestive) heart failure; D62 Acute posthemorrhagic anemia; N17.9 Acute kidney failure, unspecified; I48.20 Chronic atrial fibrillation, unspecified; F10.20 Alcohol dependence, uncomplicated; Z79.01 Long term (current) use of anticoagulants; K21.9 Gastro-esophageal reflux disease without esophagitis; E78.2 Mixed hyperlipidemia; F03.90 Unspecified dementia, unspecified severity, without behavioral disturbance, psychotic disturbance, mood disturbance, and anxiety
CPT/HCPCS: J1171; J2060; J2270

== ENCOUNTER → 2024-05-19 16:21 | Outpatient (BNV) | payer OTHER, SELFPAY | PROVIDERS: Admitting Provider Family Medicine; PCP Family Medicine; Visit Provider Family Medicine | DX: Z51.5 Encounter for palliative care (principal) | CPT/HCPCS: 99222; 99499 ==